=== PATIENT | female | born 1970 | race Caucasian/White ===

== ENCOUNTER 2024-04-06 00:54 | Day surgery (SDC) | payer MEDICARE, MEDICAID, SELFPAY ==
[2024-04-06 06:53] VITALS: BP 158/83; PULSE 120; RESP 20; TEMP 36.3; O2SAT 100; BMI 56.2
[2024-04-06] MEDS: LACTATED RINGERS 1,000 ML 150 ML IV CONT (07:08)
[2024-04-06 07:09] LABS: Glucose Point of Care 207 mg/dl (65-105)
--- NOTE | 2024-04-06 07:33 | WPDANESEPPF ---
Anes - Initial Pre Proc Eval Procedure: Operation Date: 04/06/24 08:00 Proposed Procedures p Screening Colonoscopy - Mihir Hui DO Date/Time: 04/06/24 07:33 Surgeon: Mihir Hui DO Pre Op Diagnosis: Screening for malignant neoplasm of colon Patient Data Age: 53 Gender: F Height: 1.63 m Weight: 148.5 kg Last Vital Signs Temp 97.4 F L 04/06/24 06:53 Pulse 120 H 04/06/24 06:53 Resp 20 04/06/24 06:53 BP 158/83 H 04/06/24 06:53 Pulse Ox 100 04/06/24 06:53 O2 Del Method Room Air 04/06/24 06:53 Allergies Allergy/AdvReac Type Severity Reaction Status Date / Time latex Allergy Difficulty Verified 04/06/24 06:52 Breathing levofloxacin [From Levaquin] AdvReac Mild Unknown Verified 04/06/24 06:52 metformin AdvReac Mild Unknown Verified 04/06/24 06:52 morphine AdvReac Mild Hives Verified 04/06/24 06:52 Penicillins AdvReac Mild Rash Verified 04/06/24 06:52 tioconazole AdvReac Mild burning Verified 04/06/24 06:52 [From Monistat 1 pain (tioconazole)] tardance AdvReac Mild yeast Uncoded 04/06/24 06:52 infection Home Medications Medication Instructions Recorded Confirmed Type aspirin 81 mg tablet,delayed 81 mg PO DAILY 02/22/24 03/22/24 History release (Adult Low Dose Aspirin) atorvastatin 10 mg tablet 10 mg PO DAILY #90 tabs 02/22/24 03/22/24 Rx cariprazine 1.5 mg capsule 1.5 mg PO DAILY 02/22/24 03/22/24 History (Vraylar) dextromethorphan IR 45 1 tablet PO BID 02/22/24 03/22/24 History mg-bupropion ER 105 mg biphasic tablet (Auvelity) duloxetine 30 mg capsule,delayed 30 mg PO DAILY 02/22/24 03/22/24 History release escitalopram oxalate 20 mg tablet 20 mg PO DAILY 02/22/24 03/22/24 History fexofenadine 180 mg tablet 180 mg PO DAILY 02/22/24 03/22/24 History (Alissa Allergy) lisinopril 2.5 mg tablet 2.5 mg PO DAILY #90 tabs 02/22/24 03/22/24 Rx metoprolol succinate 100 mg 100 mg PO DAILY 02/22/24 03/22/24 History tablet,extended release 24 hr metoprolol succinate 50 mg 50 mg PO DAILY 02/22/24 03/22/24 History tablet,extended release 24 hr pioglitazone 30 mg tablet 30 mg PO DAILY #90 tabs 02/22/24 03/22/24 Rx tirzepatide 15 mg/0.5 mL 15 mg (0.5 mL) subcut WEEKLY #6 mL 02/22/24 03/22/24 Rx subcutaneous pen injector (Mounjaro) Laboratory Tests 04/06/24 07:00 POC Capillary Glucose 207 H mg/dl (65-105) Patient hx anesthesia problems: none Family hx anesthesia problems: none Results Review: All pre-operative results and documents have been reviewed as part of the pre-operative evaluation. [facility] Past Medical History Medical History (Updated 02/22/24 @ 15:55 by Isabel Johnson APRN) Allergies Anxiety Diabetes Hyperlipidemia Hypertension Left hip pain MDD (major depressive disorder), recurrent episode, mild Obese GILBERTO (obstructive sleep apnea) Surgical History Surgical History (Updated 02/22/24 @ 13:54 by Charley Hoskins CMA) Hx of cholecystectomy Family History Family History (Updated 02/22/24 @ 13:53 by Charley Hoskins CMA) Father Brain cancer Mother Alcoholism Hypertension Heart disease Sibling Alcoholism Diabetes mellitus Heart disease Grandparent Diabetes mellitus Hypertension Heart disease Social History Social History (Updated 02/22/24 @ 13:51 by Charley Hoskins CMA) Smoking status: Never smoker Alcohol intake: never Substance use: never Do You Feel Safe in your Home?: Yes Lack of Transportation: No Lack of Food: Never True Current Housing: I Have Housing Concerned About Future Housing: No Difficulty Paying Gas/Electric Bills: No Difficulty Paying for Meds: No Currently Unemployed: No Education: Don't Know Difficulty w/ Childcare or Family Care: No Living arrangements: with roommate(s) Occupation/Education: other Spiritual care concerns: No Agree to blood products: Yes Anes - Eval Final PreProcedure Day of Proc
--- NOTE | 2024-04-06 07:52 | PM.IMHP ---
H&P: HPI History of Present Illness Date/Time: 04/06/24 07:52 Chief Complaint: Screening for colorectal cancer Narrative: this is a 53-year-old woman who presents for colonoscopy. She has never had a colonoscopy before. She denies any hematochezia or melena. She denies any family history of colon cancer. Review of Systems Review of Systems: All systems reviewed & are unremarkable except as noted in HPI and below Constitutional: Constitutional: Denies chills, Denies fever(s), Denies headache(s) and Denies weight loss Eyes: Eyes: Denies change in vision ENT: Denies dizziness, Denies headache(s), Denies neck mass and Denies throat swelling Cardiovascular: Cardiovascular: Denies chest pain, Denies lightheadedness and Denies dyspnea Respiratory: Respiratory: Denies cough, Denies dyspnea and Denies wheezing Gastrointestinal: Gastrointestinal: Denies abdominal pain, Denies change in bowel habits, Denies nausea and Denies vomiting Genitourinary: Genitourinary: Denies hematuria and Denies dysuria Musculoskeletal: Musculoskeletal: Reports as per HPI Integumentary/Breasts: Skin/Breast: Reports as per HPI Neurologic: Denies dizziness and Denies headache(s) Allergic/Immunologic: Allergic/Immunologic: Denies throat swelling and Denies wheezing [facility] Past Medical History Medical History (Updated 04/06/24 @ 07:52 by Mihir Hui DO) Allergies Anxiety Diabetes Hyperlipidemia Hypertension Left hip pain MDD (major depressive disorder), recurrent episode, mild Obese GILBERTO (obstructive sleep apnea) Surgical History Surgical History (Updated 02/22/24 @ 13:54 by Charley Hoskins CMA) Hx of cholecystectomy Family History Family History (Updated 02/22/24 @ 13:53 by Charley Hoskins CMA) Father Brain cancer Mother Alcoholism Hypertension Heart disease Sibling Alcoholism Diabetes mellitus Heart disease Grandparent Diabetes mellitus Hypertension Heart disease Social History Social History (Updated 02/22/24 @ 13:51 by Charley Hoskins CMA) Smoking status: Never smoker Alcohol intake: never Substance use: never Do You Feel Safe in your Home?: Yes Lack of Transportation: No Lack of Food: Never True Current Housing: I Have Housing Concerned About Future Housing: No Difficulty Paying Gas/Electric Bills: No Difficulty Paying for Meds: No Currently Unemployed: No Education: Don't Know Difficulty w/ Childcare or Family Care: No Living arrangements: with roommate(s) Occupation/Education: other Spiritual care concerns: No Agree to blood products: Yes Meds Home Medications and Allergies Home Medications Medication Instructions Recorded Confirmed Type aspirin 81 mg tablet,delayed 81 mg PO DAILY 02/22/24 03/22/24 History release (Adult Low Dose Aspirin) atorvastatin 10 mg tablet 10 mg PO DAILY #90 tabs 02/22/24 03/22/24 Rx cariprazine 1.5 mg capsule 1.5 mg PO DAILY 02/22/24 03/22/24 History (Vraylar) dextromethorphan IR 45 1 tablet PO BID 02/22/24 03/22/24 History mg-bupropion ER 105 mg biphasic tablet (Auvelity) duloxetine 30 mg capsule,delayed 30 mg PO DAILY 02/22/24 03/22/24 History release escitalopram oxalate 20 mg tablet 20 mg PO DAILY 02/22/24 03/22/24 History fexofenadine 180 mg tablet 180 mg PO DAILY 02/22/24 03/22/24 History (Alissa Allergy) lisinopril 2.5 mg tablet 2.5 mg PO DAILY #90 tabs 02/22/24 03/22/24 Rx metoprolol succinate 100 mg 100 mg PO DAILY 02/22/24 03/22/24 History tablet,extended release 24 hr metoprolol succinate 50 mg 50 mg PO DAILY 02/22/24 03/22/24 History tablet,extended release 24 hr pioglitazone 30 mg tablet 30 mg PO DAILY #90 tabs 02/22/24 03/22/24 Rx tirzepatide 15 mg/0.5 mL 15 mg (0.5 mL) subcut WEEKLY #6 mL 02/22/24 03/22/24 Rx subcutaneous pen injector (Josh) Allergies Allergy/AdvReac Type Severity Reaction Status Date / Time latex Allergy Difficulty Verified 04/06
[2024-04-06 08:23] VITALS: BP 98/59; PULSE 102; RESP 24; O2SAT 96
[2024-04-06 08:33] VITALS: BP 141/79; PULSE 102; RESP 18; O2SAT 97
== END 2024-04-06 08:42 | disposition home or self-care (01) ==
PROVIDERS: PCP Nurse Practitioner Family; Visit Provider Surgery
PROC: 0DJD8ZZ Inspection of Lower Intestinal Tract, Via Natural or Artificial Opening Endoscopic (ICD-10-PCS; CPT 45378; principal; 2024-04-06 08:00)
DX: Z12.11 Encounter for screening for malignant neoplasm of colon (principal); I10 Essential (primary) hypertension; E78.5 Hyperlipidemia, unspecified; E11.9 Type 2 diabetes mellitus without complications; F41.9 Anxiety disorder, unspecified; F33.0 Major depressive disorder, recurrent, mild; G47.33 Obstructive sleep apnea (adult) (pediatric); E66.01 Morbid (severe) obesity due to excess calories; Z68.43 Body mass index [BMI] 50.0-59.9, adult; Z79.82 Long term (current) use of aspirin; Z79.85 Long-term (current) use of injectable non-insulin antidiabetic drugs; Z90.49 Acquired absence of other specified parts of digestive tract; Z80.0 Family history of malignant neoplasm of digestive organs; Z80.8 Family history of malignant neoplasm of other organs or systems; Z82.49 Family history of ischemic heart disease and other diseases of the circulatory system
CPT/HCPCS: G0105; 82948; J7120

== ENCOUNTER 2025-04-06 10:48 | Outpatient (CLI) | payer MEDICARE, SELFPAY ==
--- OUTSIDE RECORDS SUMMARY | 2025-04-06 10:52 | XMS_ITS | Encounter Summary ---
Author Organization [facility] Health Address [address] [place] [address] Care Team Providers Care Battery Container Inspector Name Role Phone Majo Stovall MD Primary Care Provider Reason for Visit * Reason Onset Date Comments MEDICATION REFILL 03/26/2019 Encounter Details Date Type Department Care Team (Late st Contact Info) Description 03/26/2019 Refill [facility] [address] [place] [address] Majo Stovall MD [address] [facility] [place] [address] MEDICATION REFILL Social History Tobacco Use Types Packs/Day Years Used Date Smoking Tobacco: Never Smokeless Tobacco: Never Alcohol Use Standard Drinks/Week Comments Yes 0 (1 standard drink = 0.6 oz pur e alcohol) Comments Unknown Sex and Gender Information Value Date Recorded Sex Assigned at Not on file Legal Sex Female 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
--- OUTSIDE RECORDS SUMMARY | 2025-04-06 10:53 | XMS_ITS | CONTINUITY OF CARE DOCUMENT ---
Author Name charity n[facility] Address Unknown Organization [facility] Address [address] [place] [address] Phone [phone] Care Team Providers Care Director [employer] Name Role Phone Danilo BLAKE, Iona Rose Unavailable Alex MIRZAP-BC, Isabel Downey Unavailable Alex MIRZAP-BC, Isabel Downey Unavailable PROBLEMS Condition Status Date Provider Notes Hypertension active Iona Carrasco MD Diabetes, Type 2 active Iona Carrasco MD Hyperlipidemia active Iona Carrasco MD Sinus tachycardia active Iona Verduzco Anxiety situational active Iona Carrasco MD Cardiovascular Condition Screening active S felecia Carrasco MD Sleep apnea active Iona Carrasco MD Cardiology examination active Iona cunningham MD ENCOUNTERS Date Type Provider Location Encounter Diag nosis - In-person encounter Office Visit Iona Carrasco MD [facility] Cardiology examination - In-person encounter Office Visit Iona Carrasco MD [facility] - In-person encounter Office Visit Iona Carrasco MD [facility] - In-person encounter Office Visit Iona Carrasco MD [facility] Sleep apnea - In-person encounter Office Visit Iona Carrasco MD [facility] - In-person encounter Office Visit Iona Carrasco MD [facility] HypertensionDiabetes, Type 2HyperlipidemiaSinus tachycardiaAnxiety situationalCardiovascular Condition Screening VITAL SIGNS Date Observation Value Provider Body Mass Index (Ratio) 25.54 kg/m2 Paresh Dubose pulse rate 83 /min Marie Gonzalezer s oxygen saturation, oximetry 97 % Marie Prieto blood pressure, diastolic 86 mm[Hg] Ti sukhdev Prieto blood pressure, systolic 129 mm[Hg] Tif corbin Prieto weight E&M 321 [lb_av] Marie Saunder s blood pressure, cuff size regular Ti sukhdev Prieto height E&M 94 [in_i] Marie Saunder s Body Mass Index (Ratio) 27.05 kg/m2 Alana Carrasco MD blood pressure, cuff size large Ke rri Gruenenfelder blood pressure, diastolic 70 mm[Hg] Ke rri Gruenenfelder blood pressure, systolic 114 mm[Hg] Meera ri Elenanenfelder oxygen saturation, oximetry 95 % Brianna Gruenenfelder respiratory rate E&M 12 /min Brianna G ruenenfelder pulse rate 89 /min Brianna Gruenenfe lder weight E&M 340 [lb_av] Brianna Gruenenfe lder height E&M 94 [in_i] Brianna Gruenenfe lder Body Mass Index (Ratio) 24.58 kg/m2 Alana Carrasco MD blood pressure, cuff size large Ke rri Gruenenfelder blood pressure, diastolic 80 mm[Hg] Ke rri Gruenenfelder blood pressure, systolic 122 mm[Hg] Ker ri Gruenenfelder oxygen saturation, oximetry 96 % Brianna Gruenenfelder respiratory rate E&M 16 /min Brianna G ruenenfelder pulse rate 97 /min Brianna Gruenenfe lder weight E&M 309 [lb_av] Brianna Gruenenfe lder height E&M 94 [in_i] Brianna Gruenenfe lder Body Mass Index (Ratio) 24.74 kg/m2 Alana Carrasco MD blood pressure, diastolic 90 mm[Hg] Ke rri Gruenenfelder blood pressure, systolic 140 mm[Hg] Ker ri Gruenenfelder blood pressure, cuff size large Ke rri Gruenenfelder oxygen saturation, oximetry 95 % Brianna Gruenenfelder respiratory rate E&M 16 /min Brianna G ruenenfelder pulse rate 86 /min Brianna Gruenenfe er weight E&M 311 [lb_av] Brianna Gruenenfe lder height E&M 94 [in_i] Brianna Gruenenfe lder Body Mass Index (Ratio) 24.43 kg/m2 Alana Carrasco MD blood pressure, diastolic 82 mm[Hg] Li nkLogic blood pressure, systolic 142 mm[Hg] Josi kLogic blood pressure, diastolic 82 mm[Hg] Sa ra Clark blood pressure, systolic 142 mm[Hg] Casie a Clark oxygen saturation, oximetry 96 % Dimple Clark respiratory rate E&M 18 /min Dimple Si ms pulse rate 93 /min Dimple Clark weight E&M 307 [lb_av] Dimple Clark height E&M 94 [in_i] Dimple Clark blood pressure, cuff size regular Sa ra Clark Body Mass Index (Ratio) 25.22 kg/m2 Alana Carrasco MD blood pressure, diastolic 85 mm[Hg] Li nkLogic blood pressure, systolic 157 mm[Hg] Josi kLogic blood pressure, diastolic 85 mm[Hg] Ca therine Horacio blood pressure, systolic 157 mm[Hg] Cat herine Landis oxygen saturation, oximetry 94 % Maria Luisa Landis respiratory rate E&M 14 /min Catheri ne Horacio pulse rate 116 /min Maria Luisa Landis weight E&M 317 [lb_av] Maria Luisa Landis height E&M 94 [in_i] Maria Luisa Landis blood pressure, cuff size regular Ca therine Landis ALLERGIES Allergy Name Onset Date Reaction Criticality Status LEVAQUIN High Criticality active JARDIANCE High Criticality active METFORMIN High Criticality active LATEX High Criticality active MORPHINE High Criticality active PENICILLIN High Criticality active HISTORY OF MEDICATION USE Medication Status Instructions Dates Provider Indications Com ments metoprolol succinate 50 mg tablet extended release 24 hr active TAKE ONE (1) TABLET BY MOUTH ONCE DAILY. TAKE ALONG WITH ONE 100MG TAB. Chely Adair metoprolol succinate 50 mg tablet extended release 24 hr completed TAKE 1 TABLET BY MOUTH ONCE DAILY. TAKE ALONG WITH ONE 100MG TAB. - Chely Adair METOPROLOL SUCC ER 50MG TAB active TAKE ONE TABLET BY MOUTH ONCE DAILY ALONG WITH 100MG TABLET FOR 150MG DAILY Iona Carrasco MD metoprolol succinate 100 mg tablet extended release 24 hr completed Take 1 1/2 tablet by mouth once a day - Catherine [facility] metoprolol succinate 100 mg tablet extended release 24 hr completed Take 1 1/2 tablet by mouth once a day need to take 150mg daily - Adela Dania Farxiga 10 mg tablet active TAKE 1 TABLET BY MOUTH EVERY DAY Maria Luisa Horacio duloxetine 30 mg capsule,delayed release(DR/EC) active TAKE 1 CAPSULE BY MOUTH EVERY DAY Maria Luisa Landis escitalopram oxalate 20 mg tablet active TAKE 1 TABLET BY MOUTH EVERY DAY Maria Luisa Horacio glipizide 10 mg tablet active TAKE 2 TABLETS BY MOUTH TWICE A DAY Maria Luisa Horacio montelukast 10 mg tablet active TAKE 1 TABLET BY MOUTH EVERY DAY Maria Luisa Landis lisinopril 2.5 mg tablet active TAKE 1 TABLET BY MOUTH EVERY DAY Maria Luisa Horacio metoprolol succinate 100 mg tablet extended release 24 hr completed Take 1 1/2 tablet by mouth once a day - Brianna Blackwell atorvastatin 10 mg tablet active TAKE 1 TABLET BY MOUTH EVERY DAY Maria Luisa Horacio aspirin 81 mg capsule active Maria Lusia Horacio vitamin D3-folic acid 2,500 unit- 1 mg tablet active Maria Luisa Horacio Vitamin C unspecified unspecified active Maria Luisa Horacio SOCIAL HISTORY Date Observation Value Provider smoking status Never smoker Iona cunningham MD number of grandchildren Iona Carrasco MD smoking status Never smoker Iona cunningham MD social history E&M S moking History: Agnes diaz has never smoked. Iona Carrasco MD social history reviewed E&M revi ewed - no changes required Iona Carrasco MD smoking status Never smoker Brianna reilly smoking status Never smoker Brianna reilly social history E&M S moking History: Agnes daiz has never smoked. Iona Carrasco MD social history reviewed E&M channing ewed - no changes required Iona Carrasco MD smoking status Never smoker Maria Luisa hernández INSURANCE PROVIDERS Payer name Policy type / Coverage type Naseem de la cruz ID [place] [employer] Medicare [id number] ADVANCE DIRECTIVES Name Date DISCUSSED - NO DECISION MADE TREATMENT PLAN Date Name Performer [id number],C,C heck A1c H er updated medication list for this problem includes: Farxiga 10 Mg Tablet (Dapagliflozin) ..... Take 1 tablet by mouth every day Glipizide 10 Mg Tablet (Glipizide) ..... Take 2 tablets by mouth twice a day Lisinopril 2.5 Mg Tablet (Lisinopril) ..... Take 1 tablet by mouth every day Iona Carrasco MD [id number],C, H er updated medication list for this problem includes: Metoprolol Succinate 100 Mg Tablet Extended Release 24 Hr (Metoprolol succinate) ..... Take 1 1/2 tablet by mouth once a day need to take 150mg daily Lisinopril 2.5 Mg Tablet (Lisinopril) ..... Take 1 tablet by mouth every day BP today: 122/80 P rior BP: 140/90 (10/09/2022) Iona Carrasco MD [id number],S,F ebruary 2022 B radha with beta karan. Continue with metoprolol XL 150mg daily. Iona Carrasco MD [id number],C, H er updated medication list for this problem includes: Atorvastatin 10 Mg Tablet (Atorvastatin) ..... Take 1 tablet by mouth every day Iona Carrasco MD [id number],C, h ad lisa w/u done with pcp and will get cpap on 10/14January 01, 2023 T he patient is using CPAP on a regular basis. The patient has been benefiting from therapy and should continue use. Iona Carrasco MD [id number],C, o n medrx Iona Carrasco MD [id number],S, H er updated medication list for this problem includes: Farxiga 10 Mg Tablet (Dapagliflozin) ..... Take 1 tablet by mouth every day Glipizide 10 Mg Tablet (Glipizide) ..... Take 2 tablets by mouth twice a day Lisinopril 2.5 Mg Tablet (Lisinopril) ..... Take 1 tablet by mouth every day Iona Carrasco MD [id number],C, B P today: 140/90 P rior BP: 142/82 (07/03/2022) Her updated medication list for this problem includes: Metoprolol Succinate 100 Mg Tablet Extended Release 24 Hr (Metoprolol succinate) ..... Take 1 tablet by mouth once a day Lisinopril 2.5 Mg Tablet (Lisinopril) ..... Take 1 tablet by mouth every day Iona Carrasco MD [id number],C, I ncreased Toprol XL to 50mg TID N 2021 s he tolerated and will cahgne to toprolxl 150mg Iona Carrasco MD [id number],C,h ad lisa w/u done with pcp and will get cpap on 10/14 Iona Carrasco MD [id number],C, H er updated medication list for this problem includes: Metoprolol Succinate 100 Mg Tablet Extended Release 24 Hr (Metoprolol succinate) ..... Take 1/2 tablet by mouth every eight hours take 1 tablet by mouth every day Lisinopril 2.5 Mg Tablet (Lisinopril) ..... Take 1 tablet by mouth every day BP today: 142/82 P rior BP: 157/85 (02/27/2022) Iona Carrasco MD [id number],C, H er updated medication list for this problem includes: Farxiga 10 Mg Tablet (Dapagliflozin) ..... Take 1 tablet by mouth every day Glipizide 10 Mg Tablet (Glipizide) ..... Take 2 tablets by mouth twice a day Lisinopril 2.5 Mg Tablet (Lisinopril) ..... Take 1 tablet by mouth every day Iona Carrasco MD [id number],C, H er updated medication list for this problem includes: Atorvastatin 10 Mg Tablet (Atorvastatin) ..... Take 1 tablet by mouth every day Iona Carrasco MD [id number],C, c heck echo and tel emoniotr Normal LV fucntion brief SVT Iona Carrasco MD [id number],S,Increased Top rol XL to 50mg TID Iona Carrasco MD [id number],C,check echo an d tel emoniotr Iona Carrasco MD [id number],C, H er updated medication list for this problem includes: Farxiga 10 Mg Tablet (Dapagliflozin) ..... Take 1 tablet by mouth every day Glipizide 10 Mg Tablet (Glipizide) ..... Take 2 tablets by mouth twice a day Lisinopril 2.5 Mg Tablet (Lisinopril) ..... Take 1 tablet by mouth every day Iona Carrasco MD [id number],S,on medrx Alana Carrasco MD [id number],S,T SH was normal at 1.99 on 03/26/21 w ill get tele monitor a void caffeine s he has been drinking iced tea unsweetehned advicesd against intake of caffeine for now w ill increase toprol xl to 50mg bid a void montekulast use flonase for allergies Iona Carrasco MD [id number],S,advacnce topr olxl to 50mg bid Iona Carrasco MD Cardiology:Recommend check BP at home. I ncrease Lisinopril in future if needed. H er updated medication list for this problem includes: Metoprolol Succinate 50 Mg Tablet Extended Release 24 Hr (Metoprolol succinate) ..... Take one (1) tablet by mouth once daily. take along with one 100mg tab. Lisinopril 2.5 Mg Tablet (Lisinopril) ..... Take 1 tablet by mouth every day BP today: 129/86 P rior BP: 114/70 (02/23/2024) Iona Carrasco MD Cardiology: A 1c 6.5% C heck A1c H er updated medication list for this problem includes: Farxiga 10 Mg Tablet (Dapagliflozin) ..... Take 1 tablet by mouth every day Glipizide 10 Mg Tablet (Glipizide) ..... Take 2 tablets by mouth twice a day Lisinopril 2.5 Mg Tablet (Lisinopril) ..... Take 1 tablet by mouth every day March 09, 2025 A 1c 7.1 most recenty Iona Carrasco MD Cardiology: I mproved on toprol XL1 50mg. BP tolerates. Iona Carrasco MD Cardiology: h ad lisa w/u done with pcp and will get cpap on 10/14January 01, 2023 T he patient is using CPAP on a regular basis. The patient has been benefiting from therapy and should continue use. February 23, 2024 T he patient is using CPAP on a regular basis. The patient has been benefiting from therapy and should continue use. March 09, 2025 T he patient is using CPAP on a regular basis. The patient has been benefiting from therapy and should continue use. T his visit has been a part of the consistent, comprehensive, and ongoing management of the chronic medical condition(s) listed above for the patient. Iona Carrasco MD Cardiology: H er updated medication list for this problem includes: Atorvastatin 10 Mg Tablet (Atorvastatin) ..... Take 1 tablet by mouth every day Ioan Carrasco MD Cardiology: c heck echo and tele moniotr Normal LV fucntion brief SVT ECHO 1 . Technically difficult study, secondary to obesity and a large body habitus. Interpretation is based on available limited v iews. Normal left ventricular systolic function. Normal left ventricular size. Normal left ventricular wall thickness. There is E t o A wave reversal consistent with impaired LV relaxation. E/E': 6.0 Left ventricular ejection fraction is measured at 65 %. 2 . Normal right ventricular size. Normal right ventricular systolic function. 3 . No significant valvular abnormalities. 0 05/19/2022 at 10:51 AM Iona Carrasco MD Cardiology: o n medrx Iona Carrasco MD Cardiology:[facility] updated medication list for this problem includes: Farxiga 10 Mg Tablet (Dapagliflozin) ..... Take 1 tablet by mouth every day Glipizide 10 Mg Tablet (Glipizide) ..... Take 2 tablets by mouth twice a day Lisinopril 2.5 Mg Tablet (Lisinopril) ..... Take 1 tablet by mouth every day Iona Carrasco MD Cardiology:Improved on toprol XL 1 50mg. BP tolerates. Iona Carrasco MD Cardiology: h ad lisa w/u done with pcp and will get cpap on 10/14January 01, 2023 T he patient is using CPAP on a regular basis. The patient has been benefiting from therapy and should continue use. February 23, 2024 T he patient is using CPAP on a regular basis. The patient has been benefiting from therapy and should continue use. Iona Carrasco MD Cardiology:Check A1c H er updated medication list for this problem includes: Farxiga 10 Mg Tablet (Dapagliflozin) ..... Take 1 tablet by mouth every day Glipizide 10 Mg Tablet (Glipizide) ..... Take 2 tablets by mouth twice a day Lisinopril 2.5 Mg Tablet (Lisinopril) ..... Take 1 tablet by mouth every day Iona Carrasco MD Cardiology: H er updated medication list for this problem includes: Metoprolol Succinate 100 Mg Tablet Extended Release 24 Hr (Metoprolol succinate) ..... Take 1 1/2 tablet by mouth once a day need to take 150mg daily Lisinopril 2.5 Mg Tablet (Lisinopril) ..... Take 1 tablet by mouth every day BP today: 122/80 P rior BP: 140/90 (10/09/2022) Iona Carrasco MD Cardiology:January 01, 2023 B radha with beta karan. Continue with metoprolol XL 150mg daily. Iona Carrasco MD Cardiology: H er updated medication list for this problem includes: Atorvastatin 10 Mg Tablet (Atorvastatin) ..... Take 1 tablet by mouth every day Iona Carrasco MD Cardiology: h ad lisa w/u done with pcp and will get cpap on 10/14January 01, 2023 T he patient is using CPAP on a regular basis. The patient has been benefiting from therapy and should continue use. Iona Carrasco MD Cardiology: o n medrx Iona Carrasco MD Cardiology: H er updated medication list for this problem includes: Farxiga 10 Mg Tablet (Dapagliflozin) ..... Take 1 tablet by mouth every day Glipizide 10 Mg Tablet (Glipizide) ..... Take 2 tablets by mouth twice a day Lisinopril 2.5 Mg Tablet (Lisinopril) ..... Take 1 tablet by mouth every day Iona Carrasco MD Cardiology: B P today: 140/90 P rior BP: 142/82 (07/03/2022) Her updated medication list for this problem includes: Metoprolol Succinate 100 Mg Tablet Extended Release 24 Hr (Metoprolol succinate) ..... Take 1 tablet by mouth once a day Lisinopril 2.5 Mg Tablet (Lisinopril) ..... Take 1 tablet by mouth every day Iona Carrasco MD Cardiology: I ncreased Toprol XL to 50mg TID N ovember 2021 s he tolerated and will cahgne to toprolxl 150mg Iona Carrasco MD Cardiology:had lisa w /u done with pcp and will get cpap on 10/14 Iona Carrasco MD Cardiology: H er updated medication list for this problem includes: Metoprolol Succinate 100 Mg Tablet Extended Release 24 Hr (Metoprolol succinate) ..... Take 1/2 tablet by mouth every eight hours take 1 tablet by mouth every day Lisinopril 2.5 Mg Tablet (Lisinopril) ..... Take 1 tablet by mouth every day BP today: 142/82 P rior BP: 157/85 (02/27/2022) Iona Carrasco MD Cardiology: H er updated medication list for this problem includes: Farxiga 10 Mg Tablet (Dapagliflozin) ..... Take 1 tablet by mouth every day Glipizide 10 Mg Tablet (Glipizide) ..... Take 2 tablets by mouth twice a day Lisinopril 2.5 Mg Tablet (Lisinopril) ..... Take 1 tablet by mouth every day Iona Carrasco MD Cardiology: H er updated medication list for this problem includes: Atorvastatin 10 Mg Tablet (Atorvastatin) ..... Take 1 tablet by mouth every day Iona Carrasco MD Cardiology: c heck echo and tel emoniotr Normal LV fucntion brief SVT Iona Carrasco MD Cardiology:Increased Toprol XL t o 50mg TID Iona Carrasco MD Cardiology:check echo and tel em oniotr Iona Carrasco MD Cardiology: H er updated medication list for this problem includes: Farxiga 10 Mg Tablet (Dapagliflozin) ..... Take 1 tablet by mouth every day Glipizide 10 Mg Tablet (Glipizide) ..... Take 2 tablets by mouth twice a day Lisinopril 2.5 Mg Tablet (Lisinopril) ..... Take 1 tablet by mouth every day Iona Carrasco MD Cardiology:on medrx Iona kiran MD Cardiology:TSH was n ormal at 1.99 on 03/26/21 w ill get tele monitor a void caffeine s he has been drinking iced tea unsweetehned advicesd against intake of caffeine for now w ill increase toprol xl to 50mg bid a void montekulast use flonase for allergies Iona Carrasco MD Cardiology:advacnce toprolxl to 50mg bid Iona Carrasco MD Date Name Complete Echo Monitor - Telemetry (Mobile Cardiac) Monitor - Telemetry (Mobile Cardiac) Complete Echo Monitor - Telemetry (Mobile Cardiac) HISTORY OF PROCEDURES Procedure Date Procedure Name Provider Procedure Notes S tatus Complex e/m visit add on Iona Carrasco MD completed EKG Iona Carrasco MD compl eted EKG Iona Carrasco MD compl eted EKG Iona Carrasco MD compl eted EKG Iona Carrasco MD compl eted EKG Iona Carrasco MD compl eted EKG Iona Carrasco MD compl eted
--- OUTSIDE RECORDS SUMMARY | 2025-04-06 10:53 | XMS_ITS | Clinical Summary ---
Author Organization [facility] Address [address] [place] [address] Care Team Providers Care Supervisor [employer] Name Role Phone Majo Stovall MD Primary Care Provider [phone] Source Comments [facility],non-owned Affiliates and Associated Physician Practices is amultiple site organization consisting of ambulatory clinics and hospital sitesin [place], [place], [place] and [place]. This disclosure is being madepursuant to the Care Everywhere program and may not contain all information available regarding this patient. Last updated 18.[facility] Allergies Active Allergy Reactions Criticality Noted Date Comments Empagliflozin Other 10/28/2018 Yeast infections Latex Rash Medium 06/15/2018 Levofloxacin Nausea and/or Vomiting 12/03/2010 Metformin GI Discomfort 06/15/2018 Hydrocortisone Other 10/28/2018 Monistat cream and insertion causes burning Morphine Rash Medium 06/15/2018 Penicillins Anaphylaxis High 06/15/2018 Medications * This document contains information received from the source organization and may not represent a complete record from that organization. * Be aware that medications may not be up to date on this document. Alwaysverify current medications with the patient. Folic Acid 800 MCG Active Cholecalcifero l (VITAMIN D3) 3000 UNITS Active Fexofenadine HCl (MIGUELITO PO) Active multivitamin daily tablet Take 1 tablet by mouth daily with food Active TURMERIC PO Active Glucose Blood (BLOOD GLUCOSE TEST STRIPS) STRP Use 1 strip 2 times daily,before breakfast and supper 100 strip 5 8 Active glipiZIDE (GLUCOTROL) 10 MG tablet TAKE 2 TABLETS BY MOUTH TWICE DAILY 60 tablet 9 Active metoprolol succinate XL 24hr (TOPROL XL) 50 MG tablet Take 1 tablet by mouth once daily 90 tablet 1 9 Active buPROPion XL 24hr (WELLBUTRIN-XL ) 300 MG tablet Take 1 tablet by mouth once daily 90 tablet 1 9 Active amLODIPine (NORVASC) 5 MG tablet Take 1 tablet by mouth once daily 90 tablet 1 9 Active buPROPion XL 24hr (WELLBUTRIN-XL ) 150 MG tablet Take one tab po in evening 90 tablet 1 9 Active atorvastatin (LIPITOR) 10 MG tablet Take 1 tablet by mouth at bedtime 90 tablet 1 9 Active glipiZIDE (GLUCOTROL) 10 MG tablet Take 2 tablets by mouth 2 times daily 180 tablet 1 9 Active escitalopram (LEXAPRO) 10 MG tablet Take 1 tablet by mouth once daily 90 tablet 9 Active TRULICITY 1.5 MG/0.5ML injection INJECT 1.5MG SUBQUTANEOUSLY EVERY 7 DAYS 2 mL 9 Active Active Problems Problem Noted Date Diagnosed Date Essential hypertension 03/01/2019 Tension headache 10/28/2018 Overview (10/28/2018): Would consider trial of pamelor Lactose intolerance in adult 06/15/2018 Folate deficiency 02/23/2017 Overview (07/18/2018): Overview: Folate 1 mg daily; 02/12 borderline level Pain in joint, shoulder region 08/25/2016 Overview (10/28/2018): Overview: Seen by PT; Félix Vázquez Presented with chest pain --2 ER visits Overview: CRP and ESR increased at 1.67; RA negative , MAGGIE negative Will check CCP; refer rheum About 50% better with advil 600 tid Irritable bowel syndrome with diarrhea 6 Overview (10/28/2018): Overview: Diarrhea for years; worse with spicy and fatty food Eats a lot of dairy--08/14--suggested reduction dairy Labs normal; does not want to reduce dairy--recommended trial of lactase Hypercholesteremia 04/24/2015 Palpitations 12/12/2014 Overview (10/28/2018): Overview: Has seen cardiology--most likely stress related Trial of toprol XR 50 mg Snores 12/12/2014 Overview (10/28/2018): Overview: Refer to [facility] again 12/13 Insomnia 09/29/2013 Overview (10/28/2018): Overview: Given trazodone; did not take initially; 03/14 working Anxiety state 09/15/2013 Depression 09/15/2013 Overview (10/28/2018): Overview: Has been on multiple meds in past--zoloft, paxil, prozac--initially work and then stop; seroquel ; hx of suicidal ideation Seeing therapist Michelle Dumont. Refer psychiatrist Candice for muscle relaxant and anti anxiety for now 09/10 Feels better with sleep--tramadol--09/29 Will try wellbutrin XL 07/13 Diabetes mellitus 01/30/2013 Overview (03/02/2019): Overview: Hgb A1C 7.2 03/11 Hgb A1C 6.1% 06/10; 09/10 6.3% (drinking more soda) HbA1C 09/11 now 7.5% ; start metformin XR 500 mg Does not tolerate metformin--start glipizide 10 ; up to 10 bid if BS over 150 fasting Add byetta if BS 's not down--follow up in 06/12 Hates injections Given script for glucometer HbA1C 6.8% 07/13 glipizide 10 mg q AM 12/14 HbA1C 6.9% 08/14 HbA1C 8.3%--dietary indiscretion--offered liraglutide 02/12 HbA1C 9.3%; emailed pt since unable to reach--see documentation 10/16 on dulaglutide, glipizide,40 mg; increase dulaglutide to 1.5 from 0.75; HbA1C 8.3% 03/17 HbA1C 7.5% ; yeast infections on SGLT2 inhibitor; diarrhea with metformin, refuses insulin. Could consider actos 15 mg. Would try to get her to quit soda first. Diastolic dysfunction 01/30/2013 Overview (07/18/2018): Overview: Seen by cardiology; no symptoms ; will be observed; ECHO in one yr 09/11 01/14 repeat ECHO consistent with Stage 1 dyastolic dysfunction Vitamin D deficiency 01/30/2013 Overview (10/28/2018): Overview: Vit D 12 09/10 45 Morbid obesity 01/24/2013 Morbid obesity with BMI of 50.0-59.9, adult 12/31 Overview (10/28/2018): Overview: Lost 40 lb from 01/11 to 09/10. Discussed gastric bypass surgery 09/11 Pt wants to wait until can lose more weight on own--recommended checking into different surgeries and ?coverage by [facility] Discussed bypass 12/13--wants to try again to lose weight Allergic rhinitis 12/03/2010 Immunizations Immunization Administration Dates Next Due INFLUENZA VACCINE 09/24/2014 INFLUENZA VACCINE, QUADR. (A FLURIA, FLUZONE QUADRIVALENT; 6MO+) (IIV4) 10/28/2018 TDAP (7yrs+) 03/09/2017 Family History Medical History Relation Name Comments Brain Tumor Father CAD (Coronary Artery Disease) Maternal Grandmother Diabetes - Type 2 Maternal Grandmother Hypertension Maternal Grandmother CAD (Coronary Artery Disease) Mother Diabetes - Type 2 Mother CAD (Coronary Artery Disease) Paternal Grandfather CAD (Coronary Artery Disease) Paternal Grandmother Hypertension Paternal Grandmother Relation Name Status Comments Father Maternal Grandfather Maternal Grandmother Mother Alive Paternal Grandfather Paternal Grandmother Alive Social History Tobacco Use Types Packs/Day Years Used Date Smoking Tobacco: Never Smokeless Tobacco: Never Alcohol Use Standard Drinks/Week Comments Yes 0 (1 standard drink = 0.6 oz pur e alcohol) Comments Unknown Sex and Gender Information Value Date Recorded Sex Assigned at Not on file Legal Sex Female 2:39 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 Gender Identity Female 06/20/2019 8:35 AM CDT Sexual Orientation Not on file Last Filed Vital Signs Vital Sign Reading Time Taken Comments Blood Pressure 146/79 06/20/2019 8:48 AM CDT Pulse 106 06/20/2019 8:48 AM CDT Temperature 36.6 C (97.9 F) 06/20/2019 8:48 AM CDT Respiratory Rate 22 03/01/2019 1:21 PM CDT Oxygen Saturation 98% 06/20/2019 8:48 AM CDT Inhaled Oxygen Concentration - - Weight 157.9 kg (348 lb) 06/20/2019 8:48 AM CDT Height 162.6 cm (5' 4 ) 06/20/2019 8:48 AM CDT Body Mass Index 59.73 06/20/2019 8:48 AM CDT Plan of Treatment Health Maintenance Due Date Last Done Comments COLOGUARD (AGES 45-75) - COLON CA SCREENING 1969 COLON MONITORING 1969 COLONOSCOPY - COLON CA SCREENING 1969 CT COLONOGRAPHY - COLON CA SCREENING 1969 Colorectal Cancer Screening 1969 FIT - COLON CA SCREENING 1969 FLEX SIG - COLON CA SCREENING 1969 HIV SCREENING 1984 HEPATITIS C SCREENING 09/28/1987 HEPATITIS B VACCINE (1 of 3 - 19+ 3-dose series) 1988 MAMMOGRAM 03/03/2015 03/03/2013 DIABETES-HGB A1C 05/31/2019 03/01/2019, , 02/22/2017, Additional history exists PNEUMOCOCCAL VACCINE 50+ (1 of 1 - PCV) 2019 ZOSTER VACCINE (1 of 2) 2019 DIABETES-FOOT EXAM WITH MONOFILAMENT 10/28/2019 10/28/2018 DIABETES-SERUM CREATININE 10/28/20192017, 02/22/2017, 08/06/2016, Additional history exists COVID-19 VACCINE (1 - season) 2024 DEPRESSION SCREENING 11/29/2024 DIABETES - URINE PROTEIN SCREENING 11/29/2024 03/01/2019, 10/28/2018 INFLUENZA VACCINE (Season Ended) 2025 10/28/2018, 09/24/2014 DTAP/TDAP/TD VACCINES (2 - Td or Tdap) 03/09/2027 03/09/2017 HIB VACCINE Aged Out No longer eligi ble based on patient's age to complete this topic HPV VACCINE Aged Out No longer eligi ble based on patient's age to complete this topic MENINGOCOCCAL (Group B) VACCINE SHARED DECISION-MAKING Aged Out No longer eligible based on patient's age to complete this topic MENINGOCOCCAL GROUPS A/C/Y/W VACCINE Aged Out No longer eligible based on patient's age to complete this topic Procedures Procedure Name Priority Date/Time Associated Diagnosis Comments MICROALBUMIN URINE RANDOM Routine 03/01/2019 2:03 PM CDT Type 2 diabetes mellitus with hyperglycemia, without long-term current use of insulin HEMOGLOBIN A1C Routine 03/01/2019 2:03 PM CDT Type 2 diabetes mellitus with hyperglycemia, without long-term current use of insulin COMPREHENSIVE METABOLIC PANEL Routine 10/28/2018 1:00 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 Uncontrolled type 2 diabetes mellitus with hyperglycemia MAMMO BILAT SCREENING Routine 03/03/2013 7:42 AM CDT from Last 3 Months or Most Recently Relevant to Health Maintenance Results * MICROALBUMIN URINE RANDOM (03/01/2019 2:03 PM CDT) Microalbumin Urine 0.4 mg/dL [facility] Comment: Reference Range Not established MYRNA See Below [facility] Comment: The ADA defines abnormalities in albumin excretion as follows: Category Result (mcg/mg creatinine) Normal <30 Microalbuminuria 30-299 Clinical albuminuria > OR = 300 The ADA recommends that at least two of three specimens collected within a 3-6 month period be abnormal before considering a patient to be within a diagnostic category. Test Performed at: [facility] [id number] [place] [address] KALI ZAMORANO DO,MPH Urine URINE SPECIMEN OBTAINED BY CLEAN CATCH PROCEDURE / Unknown 03/01/2019 2:03 PM CDT 03/02/2019 5:38 AM CDT us Majo Stovall MD LAB - URINE CHEMISTRY ORDERAB LES Final Result [facility] [id number] [place] [address] * (ABNORMAL) HEMOGLOBIN A1C (03/01/2019 2:03 PM CDT) Hemoglobin A1c 7.5(H) <5.7 % of total Hgb [facility] Comment: For someone without known diabetes, a hemoglobin A1c value of 6.5% or greater indicates that they may have diabetes and this should be confirmed with a follow-up test. For someone with known diabetes, a value <7% indicates that their diabetes is well controlled and a value greater than or equal to 7% indicates suboptimal control. A1c targets should be individualized based on duration of diabetes, age, comorbid conditions, and other considerations. Currently, no consensus exists regarding use of hemoglobin A1c for diagnosis of diabetes for children. 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 BUN 12 7 - 25 mg/dL [facility] Creatinine 0.75 0.50 - 1.10 mg/dL [facility] eGFR by MDRD 94 > OR = 60 mL/min/1. 73m2 [facility] eGFR by MDRD 108 > OR = 60 mL/min/1. 73m2 [facility] BUN/Creatinine Ratio NOT APPLICABLE 6 - 22 (calc) [facility] Sodium 137 135 - 146 mmol/L [facility] Potassium 4.4 3.5 - 5.3 mmol/L [facility] Chloride 99 98 - 110 mmol/L [facility] CO2 23 20 - 32 mmol/L [facility] Calcium 9.4 8.6 - 10.2 mg/dL [facility] Protein Total 7.1 6.1 - 8.1 g/dL [facility] Albumin 4.2 3.6 - 5.1 g/dL [facility] Globulin Total 2.9 1.9 - 3.7 g/dL (calc) [facility] Albumin/Globuli n Ratio 1.4 1.0 - 2.5 (calc) [facility] Bilirubin Total 0.5 0.2 - 1.2 mg/dL [facility] Alkaline Phosphatase 105 33 - 115 U/L [facility] AST 11 10 - 35 U/L [facility] ALT 14 6 - 29 U/L [facility] Comment: Test Performed at: [facility] [id number] [place] [address] KALI ZAMORANO DO,MPH Blood BLOOD SPECIMEN / Unknown 10/28/2018 1:00 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 10/29/2018 6:29 AM KETTLE FRY COOK OPERATOR us Majo Stovall MD LAB - CHEMISTRY ORDERABLES Fi nal Result Performing Organization Address City/State/[facility] Co de Phone Number [facility] [address] [place] [address] * MAMMO BILAT SCREENING (03/03/2013 7:42 AM CDT) Anatomical Region Laterality Modality Breast Bilateral Other Impressions 03/09/2013 5:13 PM CDT IMPRESSION: No mammographic evidence of malignancy. BI-RADS Category 1: Negative examination. Return for mammograms in one year or sooner if clinically indicated. Management of a palpable abnormality should be based on clinical grounds. This report was electronically signed by TIFFANY SHARMA M.D. on 03/09/2013 5:13 PM . Narrative 03/09/2013 5:13 PM CDT Bilateral screening mammogram Date: 03/03/2013 12:00 AM Comparison: 09/20/2009 History: Screening mammogram. Findings: The breasts were imaged in the cranial caudal and medial lateral oblique views using full field digital mammography. No suspicious new dominant mass, clustered microcalcification, or architectural distortion is seen. Breast parenchymal density: Scattered fibroglandular. This examination was subjected to CAD analysis. Procedure Note Julieth Sharma MD - 02/27/2018 Bilateral screening mammogram Date: 03/03/2013 12:00 AM Comparison: 09/20/2009 History: Screening mammogram. Findings: The breasts were imaged in the cranial caudal and medial lateral obliqueviews using full field digital mammography. No suspicious new dominantmass, clustered microcalcification, or architectural distortion is seen. Breast parenchymal density: Scattered fibroglandular. This examination was subjected to CAD analysis. IMPRESSION IMPRESSION: No mammographic evidence of malignancy. BI-RADS Category 1: Negative examination. Return for mammograms in one year or sooner if clinically indicated. Management of a palpable abnormality should be based on clinicalgrounds. This report was electronically signed by TIFFANY SHARMA M.D. on03/09/2013 5:13 PM . us Majo Stovall MD MAMMO ORDERABLES Final Result from Last 3 Months or Most Recently Relevant to Health Maintenance Insurance [employer] [address] [employer] Care Teams Supervisor [employer] Relationship Specialty Start Date End Date Majo Stovall MD [id number] [address] PCP - General 05/27/18
--- OUTSIDE RECORDS SUMMARY | 2025-04-06 10:53 | XMS_ITS | Clinical Summary ---
Author Organization [facility] [place] [address] Address [address] [place] [address] Care Team Providers Care Outreach Worker Name Role Phone Melisa Calderon NP Primary Care Provider [phone] Allergies Active Allergy Reactions Criticality Noted Date Comments Hydrocortisone Other (See comments) Low 10/28/2018 Monistat cream and insertion causes burning Empagliflozin Muscle pain Medium 09/22/2019 Latex Anaphylaxis High 09/22/2019 Levofloxacin Nausea only Low 09/22/2019 Metformin Nausea & Vomiting Low 09/22/2019 Morphine Hives Medium 09/22/2019 Penicillins Anaphylaxis High 09/22/2019 Medications cholecalciferol (VITAMIN D-3) 5,000 unit capsule Take 3,000 Units by mouth daily Active fexofenadine (MIGUELITO) 180 mg tablet Take 180 mg by mouth daily Active folic acid (FOLVITE) 1 mg tablet Take 800 mcg by mouth daily Active lidocaine 4 % gel Apply topically Active buPROPion XL (WELLBUTRIN XL) 300 mg 24 hr tablet Take 1 tablet (300 mg total) by mouth daily 90 tablet 1 07/19/20 20 Active amLODIPine (NORVASC) 10 mg tabletIndications: Type 2 diabetes mellitus with other specified complication, without long-term current use of insulin (HCC),Hypertension associated with diabetes (HCC),Type 2 diabetes mellitus with hyperlipidemia (HCC),Obesity, diabetes, and hypertension syndrome (HCC) Take 0.5 tablets (5 mg total) by mouth daily 90 tablet 1 07/19/20 20 Active metoprolol XL (TOPROL-XL) 50 mg extended release tabletIndications: Type 2 diabetes mellitus with other specified complication, without long-term current use of insulin (HCC),Hypertension associated with diabetes (HCC),Type 2 diabetes mellitus with hyperlipidemia (HCC),Obesity, diabetes, and hypertension syndrome (HCC) Take 1 tablet (50 mg total) by mouth daily 90 tablet 1 07/19/20 20 Active fluconazole (DIFLUCAN) 150 mg tabletIndications: Yeast infection Take 1 tablet (150 mg total) by mouth as directed Take one tab now. Repeat in 7 days if symptoms persist. 2 tablet 07/29/20 Active Additional Information Patient not taking.Reported on 11/01/2020 buPROPion XL (WELLBUTRIN XL) 150 mg 24 hr tabletIndications: Mild episode of recurrent major depressive disorder,Anxiety,I nsomnia, unspecified type TAKE ONE TABLET BY MOUTH EVERY MORNING 90 tablet 09/24/20 20 Active traZODone (DESYREL) 50 mg tablet Take 50 mg by mouth nightly as needed for sleep Active glipiZIDE (GLUCOTROL) 10 mg tabletIndications: Type 2 diabetes mellitus with other specified complication, without long-term current use of insulin (HCC),Hypertension associated with diabetes (HCC),Type 2 diabetes mellitus with hyperlipidemia (HCC),Obesity, diabetes, and hypertension syndrome (HCC) Take 2 tablets (20 mg total) by mouth 2 (two) times a day before breakfast and lunch 360 tablet 11/01/20 20 Active atorvastatin (LIPITOR) 10 mg tabletIndications: Type 2 diabetes mellitus with other specified complication, without long-term current use of insulin (HCC),Hypertension associated with diabetes (HCC),Type 2 diabetes mellitus with hyperlipidemia (HCC),Obesity, diabetes, and hypertension syndrome (HCC) Take 1 tablet (10 mg total) by mouth daily 90 tablet 3 11/01/20 20 Active escitalopram (LEXAPRO) 10 mg tabletIndications: Mild episode of recurrent major depressive disorder,Anxiety,I nsomnia, unspecified type Take 1 tablet (10 mg total) by mouth daily 90 tablet 1 11/01/20 20 Active lisinopriL (PRINIVIL,ZESTRIL) 2.5 mg tablet Take 2.5 mg by mouth daily Active dulaglutide (TRULICITY) 1.5 mg/0.5 mL pen injectorIndication s:Type 2 diabetes mellitus with other specified complication, without long-term current use of insulin (HCC),Type 2 diabetes mellitus with hyperlipidemia (HCC),Hypertension associated with diabetes (HCC),Obesity, diabetes, and hypertension syndrome (HCC) Inject 0.5 mL (1.5 mg total) under the skin every 7 days 8 mL 02/08/20 21 Active Active Problems Problem Noted Date Diagnosed Date Callus 11/01/2020 Assessment & Plan (11/01/2020 11:20 AM CONCIERGE MANAGER): Referral to podiatry. Hip pain, left 11/01/2020 Assessment & Plan (11/01/2020 11:06 AM CONCIERGE MANAGER): Take NSAIDs as needed. May use ice & heat to affected area. Maintain adequate rest with stretching/exercising. The patient was advised to call the office if symptoms worsen or do not improve. The patient verbalized an understanding of all instructions & plan. Painful veins 11/01/2020 Assessment & Plan (11/01/2020 11:21 AM CONCIERGE MANAGER): Imagining ordered. Non compliance w medication regimen 06/04/2020 Assessment & Plan (06/04/2020 2:48 PM CDT): Patient ran out of medications over three weeks ago for diabetes, just made appointment for today, blood sugars consistently running over 300. BMI 50.0-59.9, adult 06/04/2020 Assessment & Plan (11/01/2020 9:54 AM CONCIERGE MANAGER): BMI Follow-up includes: education provided. Assessment & Plan (06/04/2020 2:53 PM CDT): BMI Follow-up includes: education provided. Diabetes mellitus 09/22/2019 Assessment & Plan (10/31/2020 8:30 AM CONCIERGE MANAGER): Cont to take medication. Cont to monitor feet. Cont to go to eye doctor yearly. Cont to check blood sugars. Cont to eat healthy & exercise. Assessment & Plan (06/04/2020 2:49 PM CDT): Patient ran out of medications over three weeks ago for diabetes, just made appointment for today, blood sugars consistently running over 300. Will reorder her Trulicity and Glipizide, patient instructed to follow up in office in 3 months so we can order blood work. Assessment & Plan (01/19/2020 10:40 AM CONCIERGE MANAGER): Hasn't been on Trulicity. Couldn't afford it. Has money now. Did give sample. HgA1C 11.9 in office. Informed her she needs to be on insulin. She doesn't want insulin. She will take Trulicity & get the blood sugars under control. Explained to her if not improved will need to go on insulin & may need to see bait maker. Cont to take medication. Cont to monitor feet. Cont to go to eye doctor yearly. Cont to check blood sugars. Cont to eat healthy & exercise. The patient was advised to call the office if symptoms worsen or do not improve. The patient verbalized an understanding of all instructions & plan. Assessment & Plan (09/22/2019 9:27 AM CDT): Cont to take medication. Cont to monitor feet. Cont to go to eye doctor yearly. Cont to check blood sugars. Cont to eat healthy & exercise. The patient was advised to call the office if symptoms worsen or do not improve. The patient verbalized an understanding of all instructions & plan. Type 2 diabetes mellitus with hyperlipidemia Assessment & Plan (10/31/2020 8:31 AM CONCIERGE MANAGER): Advised to maintain a low-fat, low-cholesterol diet. Maintain a regular cardiovascular exercise program. Assessment & Plan (06/04/2020 2:50 PM CDT): 1. Stable, Continue current treatment. 2. Follow a low cholesterol , low fat diet 3. Exercise 4-7 days a week for at least 30 minutes per day. 4. Push the fluids 5. Follow up as directed. Last LDL was drawn on 09/22/2019 was 76 Assessment & Plan (01/18/2020 9:56 AM CONCIERGE MANAGER): Advised to maintain a low-fat, low-cholesterol diet. Maintain a regular cardiovascular exercise program. Assessment & Plan (09/22/2019 9:28 AM CDT): Advised to maintain a low-fat, low-cholesterol diet. Maintain a regular cardiovascular exercise program. The patient was advised to call the office if symptoms worsen or do not improve. The patient verbalized an understanding of all instructions & plan. Hypertension associated with diabetes 09/22/2019 Assessment & Plan (11/01/2020 11:25 AM CONCIERGE MANAGER): BP low. Hold Norvasc at this time & cont Metoprolol. Bring BP cuff in for apt. Follow up 1 month. Maintain a low-sodium diet (less than 2 grams per day). Maintain a regular cardiovascular exercise program. Assessment & Plan (06/04/2020 2:50 PM CDT): Stable, Continue current tx plan Assessment & Plan (01/18/2020 9:56 AM CONCIERGE MANAGER): Maintain a low-sodium diet (less than 2 grams per day). Maintain a regular cardiovascular exercise program. Assessment & Plan (09/22/2019 9:27 AM CDT): Maintain a low-sodium diet (less than 2 grams per day). Maintain a regular cardiovascular exercise program. The patient was advised to call the office if symptoms worsen or do not improve. The patient verbalized an understanding of all instructions & plan. Obesity, diabetes, and hypertension syndrome Assessment & Plan (10/31/2020 8:32 AM CONCIERGE MANAGER): Cont medication. Assessment & Plan (06/04/2020 2:50 PM CDT): BMI Follow-up includes: education provided. Assessment & Plan (01/18/2020 9:56 AM CONCIERGE MANAGER): Cont medication. Assessment & Plan (09/22/2019 9:28 AM CDT): Cont medication. Mild episode of recurrent major depressive disor [place] 09/22/2019 Assessment & Plan (11/01/2020 11:19 AM CONCIERGE MANAGER): D/w pt eating healthy, exercising, relaxation, counsling and medicaiton. List of therapist/psychiatrist given to pt. D/w her seeing a psychiatrist. The risks, benefits and side effects of treatment were discussed with the patient. SIGECAPS/anxiety positive; No SI,M,P; NO PMHx of mary If has any sucidual thoughts to go to ER immediately. The patient was advised to call the office if symptoms worsen or do not improve. The patient verbalized an understanding of all instructions & plan. Assessment & Plan (06/04/2020 2:51 PM CDT): Stable, will continue current medication, follow up in office in 3 months; counseled patient to monitor for any symptoms of suicidal ideations they are to let family or friends know immediatly so they can seek help for them or to call office or 911, counseling concerning emergent signs/symptoms of disease process and when to present to ER, when to call office, med/treatment plan compliance, diet and exercise. PHQ Score=0 Assessment & Plan (01/18/2020 9:57 AM CONCIERGE MANAGER): Stable. Cont medication. Assessment & Plan (09/22/2019 9:29 AM CDT): Stable. Cont medication. Anxiety 09/22/2019 Assessment & Plan (11/01/2020 11:19 AM CONCIERGE MANAGER): D/w pt eating healthy, exercising, relaxation, counsling and medicaiton. List of therapist/psychiatrist given to pt. D/w her seeing a psychiatrist. The risks, benefits and side effects of treatment were discussed with the patient. SIGECAPS/anxiety positive; No SI,M,P; NO PMHx of mary If has any sucidual thoughts to go to ER immediately. The patient was advised to call the office if symptoms worsen or do not improve. The patient verbalized an understanding of all instructions & plan. Assessment & Plan (06/04/2020 2:51 PM CDT): Stable, will continue current medication, follow up in office in 3 months; counseled patient to monitor for any symptoms of suicidal ideations they are to let family or friends know immediatly so they can seek help for them or to call office or 911, counseling concerning emergent signs/symptoms of disease process and when to present to ER, when to call office, med/treatment plan compliance, diet and exercise. PHQ Score=0 Assessment & Plan (01/18/2020 9:57 AM CONCIERGE MANAGER): Stable. Cont medication. Assessment & Plan (09/22/2019 9:28 AM CDT): Stable. Cont medication. Seasonal allergies 09/22/2019 Assessment & Plan (10/31/2020 8:33 AM CONCIERGE MANAGER): Stable. Cont otc medication as needed. Assessment & Plan (06/04/2020 2:52 PM CDT): Take Miguelito one tablet daily. Use Flonase one spray to each nostril once daily. Do not open windows on house or car to avoid further exposure to allergens, Take other medications as directed. Follow up in office as needed. Assessment & Plan (01/18/2020 9:58 AM CONCIERGE MANAGER): Stable. Cont otc medication as needed. Assessment & Plan (09/22/2019 9:29 AM CDT): Stable. Cont medication. Insomnia 09/22/2019 Assessment & Plan (11/01/2020 10:23 AM CONCIERGE MANAGER): Stable. Cont medication as needed. Takes Trazodone as needed. Assessment & Plan (06/04/2020 2:51 PM CDT): Continue current medication, no caffiene after 6pm at night, no stimulant medications such as dietary supplements or diet pills, When ready for bed turn off all TV's, radio, music to allow time to reduce the stimulant. Assessment & Plan (01/18/2020 9:57 AM CONCIERGE MANAGER): Stable. Cont medication. Assessment & Plan (09/22/2019 9:29 AM CDT): Stable. Cont medication. Morbid obesity with BMI of 50.0-59.9, adult 08/30 Assessment & Plan (06/04/2020 2:35 PM CDT): BMI Follow-up includes: education provided. Resolved Problems Problem Noted Date Diagnosed Date Resolved Date Annual physical exam 10/20/2020 021 Assessment & Plan (10/31/2020 8:29 AM CONCIERGE MANAGER): Maintain healthy lifestyle with healthy diet & exercise. Yeast infection 09/22/2019 10/20/2020 Assessment & Plan (06/04/2020 2:51 PM CDT): Will order Diflucan take as directed Assessment & Plan (01/19/2020 10:24 AM CONCIERGE MANAGER): Not wanting to have an exam & have swab sent. Feels once on Trulicity she will not have yeast infection anymore. It usually goes away when on Trulicity. She said she would come back in 1 month if not better. Re-current yeast infections with elevated blood sugar. Exercise, eat healthy & take medication. Need to get blood sugars under control. Take probiotics. The patient was advised to call the office if symptoms worsen or do not improve. The patient verbalized an understanding of all instructions & plan. Assessment & Plan (09/22/2019 9:43 AM CDT): Gets yeast infections when elevated blood sugars. Script sent to pharmacy. The patient was advised to call the office if symptoms worsen or do not improve. The patient verbalized an understanding of all instructions & plan. Immunizations Immunization Administration Dates Next Due Influenza, Quadrivalent, Spl it, Preservative Free, Intramuscular 11/01/2020 Influenza, Unspecified 09/22/2019(Deferr ed: Patient Refused),08/08/2018(Deferred: Patient Refused) Surgical History Surgery Date Site/Laterality Comments CHOLECYSTECTOMY Medical History Medical History Date Comments Diabetes mellitus (HCC) Hypertension Hyperlipidemia Anxiety Depression Family History Medical History Relation Name Comments Cancer Father Heart disease Maternal Grandfather Heart disease Maternal Grandmother Heart disease Paternal Grandmother Relation Name Status Comments Father Maternal Grandfather Maternal Grandmother Mother Alive Paternal Grandfather Paternal Grandmother Social History Tobacco Use Types Packs/Day Years Used Date Smoking Tobacco: Never Smokeless Tobacco: Never Alcohol Use Standard Drinks/Week Comments Never 0 (1 standard drink = 0.6 oz pur e alcohol) AUDIT-C Answer Date Recorded Frequency of Alcohol Consumption Never 09/22/2019 Average Number of Drinks Not on file 019 Frequency of Binge Drinking Not on file 08/30 PHQ-2 Answer Date Recorded PHQ-2 Total Score (If total score is 3 or more points, staff should administer the PHQ-9) 4 11/01/2020 Personal Safety Answer Date Recorded Getting School Help Needed Not on file 02/12 Comments Unknown Sex and Gender Information Value Date Recorded Sex Assigned at Not on file Legal Sex Female 7:51 PM CONCIERGE MANAGER Gender Identity Female 11/29/2019 8:23 PM CONCIERGE MANAGER Sexual Orientation Lesbian 11/29/2019 8: 23 PM CONCIERGE MANAGER Obstetrics History Last Filed Vital Signs Vital Sign Reading Time Taken Comments Blood Pressure 98/72 11/01/2020 10:14 AM CONCIERGE MANAGER Pulse 92 11/01/2020 10:14 AM CONCIERGE MANAGER Temperature 36.2 C (97.1 F) 11/01/2020 10:14 AM CONCIERGE MANAGER Respiratory Rate - - Oxygen Saturation - - Inhaled Oxygen Concentration - - Weight 154.7 kg (341 lb) 11/01/2020 10:14 AM CONCIERGE MANAGER Height 162.6 cm (5' 4 ) 11/01/2020 10:14 AM CONCIERGE MANAGER Body Mass Index 58.53 11/01/2020 10:14 AM CONCIERGE MANAGER Plan of Treatment Not on file Care Teams Outreach Worker Relationship Specialty Start Date End Date Melisa Calderon NP [address] [place] [address] PCP - General Family Medicine 09/22/19
--- OUTSIDE RECORDS SUMMARY | 2025-04-06 10:53 | XMS_ITS | Referral Summary ---
Author Organization [facility] [place] [address] Address [address] [place] [address] Care Team Providers Care Smoking Tobacco Packing Machine Hand Name Role Phone Melisa Calderon NP Primary Care Provider [phone] Allergies Active Allergy Reactions Criticality Noted Date [...] 11/01/2020 Assessment & Plan (11/01/2020 11:20 AM STATE ARCHIVIST): Referral to podiatry. Hip pain, left 11/01/2020 Assessment & Plan (11/01/2020 11:06 AM STATE ARCHIVIST): Take NSAIDs as needed. May use ice & heat to affected area. Maintain adequate rest with stretching/exercising. The patient was advised to call the office if symptoms worsen or do not improve. The patient verbalized an understanding of all instructions & plan. Painful veins 11/01/2020 Assessment & Plan (11/01/2020 11:21 AM STATE ARCHIVIST): Imagining ordered. Non compliance w medication regimen 06/04/2020 Assessment & Plan (06/04/2020 2:48 PM CDT): Patient ran out of medications over three weeks ago for diabetes, just made appointment for today, blood sugars consistently running over 300. BMI 50.0-59.9, adult 06/04/2020 Assessment & Plan (11/01/2020 9:54 AM STATE ARCHIVIST): BMI Follow-up includes: education provided. Assessment & Plan (06/04/2020 2:53 PM CDT): BMI Follow-up includes: education provided. Diabetes mellitus 09/22/2019 Assessment & Plan (10/31/2020 8:30 AM STATE ARCHIVIST): Cont to take medication. Cont to monitor [...] work. Assessment & Plan (01/19/2020 10:40 AM STATE ARCHIVIST): Hasn't been on Trulicity. Couldn't afford it. Has money now. Did give sample. HgA1C 11.9 in office. Informed her she needs to be on insulin. She doesn't want insulin. She will take Trulicity & get the blood sugars under control. Explained to her if not improved will need to go on insulin & may need to see business management consultant. Cont to take medication. Cont to monitor [...] hyperlipidemia Assessment & Plan (10/31/2020 8:31 AM STATE ARCHIVIST): Advised to maintain a low-fat, low-cholesterol diet. [...] 76 Assessment & Plan (01/18/2020 9:56 AM STATE ARCHIVIST): Advised to maintain a low-fat, low-cholesterol diet. [...] 09/22/2019 Assessment & Plan (11/01/2020 11:25 AM STATE ARCHIVIST): BP low. Hold Norvasc at this time & cont Metoprolol. Bring BP cuff in for apt. Follow up 1 month. Maintain a low-sodium diet (less than 2 grams per day). Maintain a regular cardiovascular exercise program. Assessment & Plan (06/04/2020 2:50 PM CDT): Stable, Continue current tx plan Assessment & Plan (01/18/2020 9:56 AM STATE ARCHIVIST): Maintain a low-sodium diet (less than 2 [...] syndrome Assessment & Plan (10/31/2020 8:32 AM STATE ARCHIVIST): Cont medication. Assessment & Plan (06/04/2020 2:50 PM CDT): BMI Follow-up includes: education provided. Assessment & Plan (01/18/2020 9:56 AM STATE ARCHIVIST): Cont medication. Assessment & Plan (09/22/2019 9:28 AM CDT): Cont medication. Mild episode of recurrent major depressive disor [place] 09/22/2019 Assessment & Plan (11/01/2020 11:19 AM STATE ARCHIVIST): D/w pt eating healthy, exercising, relaxation, counsling [...] Score=0 Assessment & Plan (01/18/2020 9:57 AM STATE ARCHIVIST): Stable. Cont medication. Assessment & Plan (09/22/2019 9:29 AM CDT): Stable. Cont medication. Anxiety 09/22/2019 Assessment & Plan (11/01/2020 11:19 AM STATE ARCHIVIST): D/w pt eating healthy, exercising, relaxation, counsling [...] Score=0 Assessment & Plan (01/18/2020 9:57 AM STATE ARCHIVIST): Stable. Cont medication. Assessment & Plan (09/22/2019 9:28 AM CDT): Stable. Cont medication. Seasonal allergies 09/22/2019 Assessment & Plan (10/31/2020 8:33 AM STATE ARCHIVIST): Stable. Cont otc medication as needed. Assessment & Plan (06/04/2020 2:52 PM CDT): Take Miguelito one tablet daily. Use Flonase one spray to each nostril once daily. Do not open windows on house or car to avoid further exposure to allergens, Take other medications as directed. Follow up in office as needed. Assessment & Plan (01/18/2020 9:58 AM STATE ARCHIVIST): Stable. Cont otc medication as needed. Assessment & Plan (09/22/2019 9:29 AM CDT): Stable. Cont medication. Insomnia 09/22/2019 Assessment & Plan (11/01/2020 10:23 AM STATE ARCHIVIST): Stable. Cont medication as needed. Takes Trazodone as needed. Assessment & Plan (06/04/2020 2:51 PM CDT): Continue current medication, no caffiene after 6pm at night, no stimulant medications such as dietary supplements or diet pills, When ready for bed turn off all TV's, radio, music to allow time to reduce the stimulant. Assessment & Plan (01/18/2020 9:57 AM STATE ARCHIVIST): Stable. Cont medication. Assessment & Plan (09/22/2019 9:29 AM CDT): Stable. Cont medication. Morbid obesity with BMI of 50.0-59.9, adult 08/30 Assessment & Plan (06/04/2020 2:35 PM CDT): BMI Follow-up includes: education provided. Resolved Problems Problem Noted Date Diagnosed Date Resolved Date Annual physical exam 10/20/2020 021 Assessment & Plan (10/31/2020 8:29 AM STATE ARCHIVIST): Maintain healthy lifestyle with healthy diet & exercise. Yeast infection 09/22/2019 10/20/2020 Assessment & Plan (06/04/2020 2:51 PM CDT): Will order Diflucan take as directed Assessment & Plan (01/19/2020 10:24 AM STATE ARCHIVIST): Not wanting to have an exam & [...] Unspecified 09/22/2019(Deferr ed: Patient Refused),08/08/2018(Deferred: Patient Refused) Social History Tobacco Use Types Packs/Day Years [...] on file Legal Sex Female 7:51 PM STATE ARCHIVIST Gender Identity Female 11/29/2019 8:23 PM STATE ARCHIVIST Sexual Orientation Lesbian 11/29/2019 8: 23 PM STATE ARCHIVIST Last Filed Vital Signs Vital Sign Reading Time Taken Comments Blood Pressure 98/72 11/01/2020 10:14 AM STATE ARCHIVIST Pulse 92 11/01/2020 10:14 AM STATE ARCHIVIST Temperature 36.2 C (97.1 F) 11/01/2020 10:14 AM STATE ARCHIVIST Respiratory Rate - - Oxygen Saturation - - Inhaled Oxygen Concentration - - Weight 154.7 kg (341 lb) 11/01/2020 10:14 AM STATE ARCHIVIST Height 162.6 cm (5' 4 ) 11/01/2020 10:14 AM STATE ARCHIVIST Body Mass Index 58.53 11/01/2020 10:14 AM STATE ARCHIVIST Plan of Treatment Not on file Care Teams Smoking Tobacco Packing Machine Hand Relationship Specialty Start Date End Date Melisa Calderon NP [address] [place] [address] PCP - General Family Medicine 09/22/19
--- OUTSIDE RECORDS SUMMARY | 2025-04-06 10:53 | XMS_ITS | Encounter Summary ---
Author Organization [facility] Address [address] [place] [address] Care Team Providers Care Crack Off Person Name Role Phone Majo Stovall MD Primary Care Provider [phone] Reason for Visit * Reason Onset Date Comments MEDICATION REFILL 04/03/2019 Encounter Details Date Type Department Care Team (Late st Contact Info) Description 04/03/2019 Refill [facility] Internal Medicine [address] [place] [address] Nitin Hernadez MD [address] [facility] [address] [facility] INTERNAL MEDICINE [place], [place] [id number] MEDICATION REFILL Social History Tobacco Use Types Packs/Day Years Used Date Smoking Tobacco: Never Smokeless Tobacco: Never Alcohol Use Standard Drinks/Week Comments Yes 0 (1 standard drink = 0.6 oz pur e alcohol) Comments Unknown Sex and Gender Information Value Date Recorded Sex Assigned at Not on file Legal Sex Female 2:39 PM LABOR RELATIONS TEACHER Gender Identity Female 06/20/2019 8:35 AM CDT Sexual Orientation Not on file documented as of this encounter Plan of Treatment Not on file documented as of this encounter Visit Diagnoses Not on filedocumented in this encounter Care Teams Crack Off Person Relationship Specialty Start Date End Date Majo Stovall MD [address] [place] [address] PCP - General 05/27/18 documented as of this encounter
[2025-04-09 15:03] LABS: Immunoglobulin A 373 mg/dL (47-310); TTG IGA AB <1.0 U/mL
== END 2025-04-06 10:49 | disposition home or self-care (01) ==
LOC: ANHLAB 10:50
PROVIDERS: PCP Nurse Practitioner Family; Visit Provider Nurse Practitioner
DX: K52.9 Noninfective gastroenteritis and colitis, unspecified (principal)
CPT/HCPCS: 36415; 82784

== ENCOUNTER 2025-04-09 11:32 | Outpatient (CLI) | payer MEDICARE, SELFPAY ==
--- OUTSIDE RECORDS SUMMARY | 2025-04-09 11:40 | XMS_ITS | Encounter Summary ---
Author Organization [facility] Health Address [address] [facility] [place] [address] Care Team Providers Care Protection Consultant Name Role Phone Majo Stovall MD Primary Care Provider Reason for Visit * Reason Onset Date Comments MEDICATION REFILL 03/26/2019 Encounter Details Date Type Department Care Team (Late st Contact Info) Description 03/26/2019 Refill [facility] [address] [place] [address] Majo Stovall MD [address] OF [facility] [place] [address] MEDICATION REFILL Social History Tobacco Use Types Packs/Day Years Used Date Smoking Tobacco: Never Smokeless Tobacco: Never Alcohol Use Standard Drinks/Week Comments Yes 0 (1 standard drink = 0.6 oz pur e alcohol) Comments Unknown Sex and Gender Information Value Date Recorded Sex Assigned at Not on file 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
--- OUTSIDE RECORDS SUMMARY | 2025-04-09 11:41 | XMS_ITS | Encounter Summary ---
Author Organization [facility] Health Address [address] [place] [address] Care Team Providers Care Director Personal Name Role Phone Majo Stovall MD Primary Care Provider Reason for Visit * Reason Onset Date Comments MEDICATION REFILL 04/03/2019 Encounter Details Date Type Department Care Team (Late st Contact Info) Description 04/03/2019 Refill [facility] Internal Medicine [address] [place] [address] Nitin Hernadez MD [address] [facility] [address] OF [facility] INTERNAL MEDICINE [place], [place] [id number] MEDICATION REFILL Social History Tobacco Use Types Packs/Day Years Used Date Smoking Tobacco: Never Smokeless Tobacco: Never Alcohol Use Standard Drinks/Week Comments Yes 0 (1 standard drink = 0.6 oz pur e alcohol) Comments Unknown Sex and Gender Information Value Date Recorded Sex Assigned at Not on file Legal Sex Female 2:39 PM [employer] Gender Identity Female 06/20/2019 8:35 AM CDT Sexual Orientation Not on file documented as of this encounter Plan of Treatment Not on file documented as of this encounter Visit Diagnoses Not on filedocumented in this encounter Care Teams Director Personal Relationship Specialty Start Date End Date Majo Stovall MD [address] [place] [address] PCP - General 05/27/18 documented as of this encounter
--- OUTSIDE RECORDS SUMMARY | 2025-04-09 11:41 | XMS_ITS | Data Portability ---
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 Non-pharmacologic therapy options for periodic limb movement disorder include avoidance of aggravating drugs and substances, mental alerting activities, short daily hemodialysis for patients in renal failure, exercise, leg massage, stretching calf muscles, use of a weighted blanket and applied heat. Patient will cut down on caffeine intake. BUN, Creatinine, Vitamin E, Vitamin B12, RBC folate, Iron, TIBC, Ferritin, Magnesium, Hgb and Hct levels are within normal limits. We will hold off on dopaminergic therapy for now. PAP compliance downloaded and interpreted x 20 minutes. Data reviewed and explained to the patient. Average apnea/hypopnea index (AHI) is 2.5. Patient used PAP > 4 hours 88% of the time. PAP is set at 10-14 cmH2O. PAP will be reset at 10-13 cmH2O. Keep ramp at 4 cmH2O. Oxygen supplementation: none Patient is benefiting from PAP therapy. Encouraged patient to maintain PAP use more than 70% of the time. Statement of PAP use and benefits will be sent to the home care store. Educated the patient on problems and solutions associated with positive airway pressure (PAP) use. Difficulty tolerating pressure, mask leaks, intolerance of interface, nasal congestion, claustrophobic response, dry mouth, and unintentional mask removal during sleep were covered. Patient has some difficulty tolerating pressure. Patient is advised to practice wearing PAP daily while awake, lower pressure with or without sleeping on sides, activate PAP ramp feature, have blower checked to make sure pressure is set as prescribed and return to sleep center for consideration of auto-adjusting PAP therapy. Patient's mask leaks air. We will ensure the mask is situated properly. Patient can wear protective eye covering during sleep, and the mask can be resized. Patient experiences nasal congestion. Patient will use nasal saline spray before starting PAP, use heated PAP humidifier, clean/air dry humidifier reservoir daily, use nasal steroid spray, use ipratropium bromide nasal spray if rhinitis/rhinorrhe a is present or obtain an oronasal/oral interface. Dry mouth is a normal occurrence for people who just start out on PAP therapy because they are not used to air blowing in to the throat to hold open. Dry mouth is exacerbated for people who wear nasal PAP mask and whose jaw drops open during sleep. Not only does this create a much less efficient therapy because of leakage, it also causes dry mouth. There are a couple solutions to help prevent this type of problem. A simple solution would be to wear a chinstrap which essentially holds the jaw in place. A second solution would be a switch to a full face mask which covers both the nose and mouth. Although this is another easy solution, using a full face mask for some could seem claustrophobic or confining. There is no silver bullet solution as no single mask is right for everybody. Sometimes it takes a bit of experimentation to find a PAP mask which best meets the patient's needs as well as fits comfortably. Another tactic is to use a humidifier on your PAP machine. Most new PAP machines have integrated humidifiers. Humidification is hinton when dealing with symptoms of dry mouth because the humidifier can supply both warm and room temperate air. Even a small amount of humidity in the airflow will help nasal passages to stay hydrated. If a person is using both a full face mask and a PAP machine with a heated humidifier and is still experiencing dry mouth, an ill-fitted PAP mask might be causing the problem. Leakage can be caused by a mask that is to large or small, the wrong style mask, the cushion is degraded or simply because the mask's straps aren't adjusted correctly. If leakage occurs, dry air from the room can leak in while humidification escapes. The result is reduced humidification within the circuit and resulting in dry throat and mouth. Finally, beyond factors involving the PAP machine and mask, dry mouth can also be caused or worsened by dehydration. The general recommendation to during eight 8 oz. glasses of water a day might be too little for many people. When people drink large amounts of coffee or other caffeine beverages, or sweat a lot during the day, making sure to rehydrate is an important part of PAP therapy. Patient tends to take of the PAP mask during sleep. We reassured patient that this is common. We address all other areas of headgear/nasal interface problems, especially nasal congestion. Patient can use humidification +/- chinstrap, put low-pressure alarm on blower unit to awaken patient to reposition mask and set alarm at night for patient to check headgear. Provided the patient with a list of local home care stores where positive airway pressure (PAP) units, accouterments, and services are available. Home care store selection is based on patient's insurance carrier. Patient will setup an appointment with [facility] for supplies and pressure adjustments. A major predictor of success with use of PAP is follow-up with both the respiratory supplier and the treating physician. The respiratory supplier optimally will follow-up within two weeks after starting use while the treating physician optimally will follow-up within 90 days after starting therapy to assess adherence and effectiveness of treatment. The download results can show the treating physician information about adherence to treatment, residual AHI while on treatment and presence of large mask leakage. This information is especially helpful if the patient has residual sleepiness despite treatment. General information on sleep disordered breathing, evaluation of sleep disordered breathing, treatment with PAP therapy, and living with PAP therapy were covered. We discussed with the patient the impact of weight on: Sleep disordered breathing Hypertension Hyperlipidemia DM We discussed with the patient the benefit of PAP therapy on: Sleep disordered breathing Depression/Anxiety Rhinitis Hypertension DM Educated the patient on sleep hygiene measures. Relaxing rituals to rest easy, understanding foods with positive and negative impact on sleep, creating a peaceful sleep environment, timing of exercise, using herbal sleep aids, and practicing sleep-friendly meditation were covered. To determine how much sleep is needed, the patient will assess where she falls on the spectrum, examine what lifestyle factors such as work schedules and stress are affecting the quality and quantity of sleep. In general, adults need 7-9 hours of sleep. Educated the patient regarding foods that promote sleep. These include but are not limited to cherries, bananas, toast, oatmeal, and warm milk. Educated the patient regarding foods and drinks to avoid before bedtime. These include but are not limited to aged cheese, chocolate, spicy foods, tomato-based sauces, soy, ginseng tea and processed meat. Advocated influenza vaccination annually and pneumonia vaccination ATIYA. Advocated weight loss through diet and exercise. Patient's ideal body weight according to height and gender is up to 130 lbs. Encouraged patient to adjust caloric intake to maintain/achieve ideal body weight, emphasizing on fruits, vegetables, whole grains, and fat-free or low-fat products. These include lean meats, poultry, fish, beans, eggs, and nuts and foods that are low in saturated fats, trans-fats, cholesterol, salt (sodium), and glycemic index. Stressed the importance of regular exercise up to the patient's capacity limits. In this case, we recommend 20 min daily walking, 2 days a week of resistance training. Patient to monitor BP daily and bring records to PCP for further management. 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 Non-pharmacologic therapy options for periodic limb movement disorder include avoidance of aggravating drugs and substances, mental alerting activities, short daily hemodialysis for patients in renal failure, exercise, leg massage, stretching calf muscles, use of a weighted blanket and applied heat. Patient will cut down on caffeine intake. BUN, Creatinine, Vitamin E, Vitamin B12, RBC folate, Iron, TIBC, Ferritin, Magnesium, Hgb and Hct levels are within normal limits. We will hold off on dopaminergic therapy for now. PAP compliance downloaded and interpreted x 20 minutes. Data reviewed and explained to the patient. Average apnea/hypopnea index (AHI) is 2.3. Patient used PAP > 4 hours 89% of the time. PAP is set at 10-13 cmH2O. PAP will remain at 10-13 cmH2O. Oxygen supplementation: none Keep ramp start at 4 cmH2O. Keep ramp duration at 20 minutes. Keep EPR +1 ramp only. Keep humidifier level at automatic mode. Keep tube temperature at automatic mode. Patient is benefiting from PAP therapy. Encouraged patient to maintain PAP use more than 70% of the time. Statement of PAP use and benefits will be sent to the home care store. Educated the patient on problems and solutions associated with positive airway pressure (PAP) use. Difficulty tolerating pressure, mask leaks, intolerance of interface, nasal congestion, claustrophobic response, dry mouth, and unintentional mask removal during sleep were covered. Patient has some difficulty tolerating pressure. Patient is advised to practice wearing PAP daily while awake, lower pressure with or without sleeping on sides, activate PAP ramp feature, have blower checked to make sure pressure is set as prescribed and return to sleep center for consideration of auto-adjusting PAP therapy. Patient's mask leaks air. We will ensure the mask is situated properly. Patient can wear protective eye covering during sleep, and the mask can be resized. Patient experiences nasal congestion. Patient will use nasal saline spray before starting PAP, use heated PAP humidifier, clean/air dry humidifier reservoir daily, use nasal steroid spray, use ipratropium bromide nasal spray if rhinitis/rhinorrhe a is present or obtain an oronasal/oral interface. Dry mouth is a normal occurrence for people who just start out on PAP therapy because they are not used to air blowing in to the throat to hold open. Dry mouth is exacerbated for people who wear nasal PAP mask and whose jaw drops open during sleep. Not only does this create a much less efficient therapy because of leakage, it also causes dry mouth. There are a couple solutions to help prevent this type of problem. A simple solution would be to wear a chinstrap which essentially holds the jaw in place. A second solution would be a switch to a full face mask which covers both the nose and mouth. Although this is another easy solution, using a full face mask for some could seem claustrophobic or confining. There is no silver bullet solution as no single mask is right for everybody. Sometimes it takes a bit of experimentation to find a PAP mask which best meets the patient's needs as well as fits comfortably. Another tactic is to use a humidifier on your PAP machine. Most new PAP machines have integrated humidifiers. Humidification is hinton when dealing with symptoms of dry mouth because the humidifier can supply both warm and room temperate air. Even a small amount of humidity in the airflow will help nasal passages to stay hydrated. If a person is using both a full face mask and a PAP machine with a heated humidifier and is still experiencing dry mouth, an ill-fitted PAP mask might be causing the problem. Leakage can be caused by a mask that is to large or small, the wrong style mask, the cushion is degraded or simply because the mask's straps aren't adjusted correctly. If leakage occurs, dry air from the room can leak in while humidification escapes. The result is reduced humidification within the circuit and resulting in dry throat and mouth. Finally, beyond factors involving the PAP machine and mask, dry mouth can also be caused or worsened by dehydration. The general recommendation to during eight 8 oz. glasses of water a day might be too little for many people. When people drink large amounts of coffee or other caffeine beverages, or sweat a lot during the day, making sure to rehydrate is an important part of PAP therapy. Patient tends to take of the PAP mask during sleep. We reassured patient that this is common. We address all other areas of headgear/nasal interface problems, especially nasal congestion. Patient can use humidification +/- chinstrap, put low-pressure alarm on blower unit to awaken patient to reposition mask and set alarm at night for patient to check headgear. Provided the patient with a list of local home care stores where positive airway pressure (PAP) units, accouterments, and services are available. Home care store selection is based on patient's insurance carrier. Patient will setup an appointment with [facility] for supplies and pressure adjustments. A major predictor of success with use of PAP is follow-up with both the respiratory supplier and the treating physician. The respiratory supplier optimally will follow-up within two weeks after starting use while the treating physician optimally will follow-up within 90 days after starting therapy to assess adherence and effectiveness of treatment. The download results can show the treating physician information about adherence to treatment, residual AHI while on treatment and presence of large mask leakage. This information is especially helpful if the patient has residual sleepiness despite treatment. General information on sleep disordered breathing, evaluation of sleep disordered breathing, treatment with PAP therapy, and living with PAP therapy were covered. We discussed with the patient the impact of weight on: Sleep disordered breathing Hypertension Hyperlipidemia DM We discussed with the patient the benefit of PAP therapy on: Sleep disordered breathing Depression/Anxiety Rhinitis Hypertension DM Educated the patient on sleep hygiene measures. Relaxing rituals to rest easy, understanding foods with positive and negative impact on sleep, creating a peaceful sleep environment, timing of exercise, using herbal sleep aids, and practicing sleep-friendly meditation were covered. To determine how much sleep is needed, the patient will assess where she falls on the spectrum, examine what lifestyle factors such as work schedules and stress are affecting the quality and quantity of sleep. In general, adults need 7-9 hours of sleep. Educated the patient regarding foods that promote sleep. These include but are not limited to cherries, bananas, toast, oatmeal, and warm milk. Educated the patient regarding foods and drinks to avoid before bedtime. These include but are not limited to aged cheese, chocolate, spicy foods, tomato-based sauces, soy, ginseng tea and processed meat. Advocated influenza vaccination annually and pneumonia vaccination ATIYA. Advocated weight loss through diet and exercise. Patient's ideal body weight according to height and gender is up to 130 lbs. Encouraged patient to adjust caloric intake to maintain/achieve ideal body weight, emphasizing on fruits, vegetables, whole grains, and fat-free or low-fat products. These include lean meats, poultry, fish, beans, eggs, and nuts and foods that are low in saturated fats, trans-fats, cholesterol, salt (sodium), and glycemic index. Stressed the importance of regular exercise up to the patient's capacity limits. In this case, we recommend 20 min daily walking, 2 days a week of resistance training. Patient to monitor BP daily and bring records to PCP for further management. Follow-up: 1 year, February 2026 Not available 03/12/2025 15:42:23 Plan of Treatment Reminders Order Date Submit Date Provider Last Modified By Organization Details Last Modified Time Details Appointments Follow Up 30 2025 01:00P Ayah Mak MD Not available Not available Not available Lab CMP, serum or plasma [address] [facility], [address] [place], [address], 10/19/2023 08:13:51 HbA1c (hemoglob in A1c), blood [address] (Lab), [address] [place], [address], 10/19/2023 08:13:51 lipid panel, serum [address] [facility], [address] [place], [address], 10/19/2023 08:13:51 Referral None recorded. Procedures None recorded. Surgeries None recorded. Imaging MAMMO, screening , digital, bilateral 2022 023 [id number] [id number] Not available 07/27/2023 08:59:42 Medication Orders pioglitaz one 30 mg tablet 2022 023 [facility], [address] [place], [address], 11/11/2023 12:22:24 Mounjaro 7.5 mg/0.5 mL subcutane ous pen injector 2022 023 [facility], [address] [place], [address], 02/23/2024 14:46:10 Mounjaro 10 mg/0.5 mL subcutane ous pen injector 2022 023 [facility], [address] [place], [address], 02/23/2024 14:46:03 Mounjaro 12.5 mg/0.5 mL subcutane ous pen injector [address] [facility], [address] [place], [address], 01/02/2024 17:17:10 Patient TargetsNo targets recorded. Patient Instructions Encounter Date Encounter Id Patient Instructions Last Modified By Organization Details Last Modified Time 07/13/2023 [id number] mo fu dm, obese, lipid, mdd, htn Not available 07/14/2023 16:45:09 11/11/2023 [id number] 3 mo fu dm, obese, lipid, mdd, htn with new provider. 11/11/23 pt aware of [place] departure. Not available 11/11/2023 11:54:10 Reason for Referral None Reported. Results Created Date Observation Date Name Description Value Unit Range Abnormal Flag Note LastModifiedBy Organization Detail LastModifiedTime 07/08/2007/08/2023 LIPID PANEL cholesterol 156 mg/dL 140-19 9 [facility] ADARSH NSUS RECOM MENDA TION FOR AROLDO STERO L: ADULT CHILD LOW RISK: <200 <170 BORDE RLINE : <200- 239 ----- HIGH RISK: >240 >200 Not Available [facility] (Lab) [address] [place], [address], 07/08/2023 19:11:34 07/08/2007/08/2023 LIPID PANEL triglyceride s 156 mg/dL 0-150 high NIH ADARSH NSUS REPOR T RECOM MENDA TION FOR TRIGL YCERI KEILY: ADULT CHILD LOW RISK: <150 ----- BODER LINE: 150-1 99 ----- HIGH RISK: >200 ----- Not Available [facility] (Lab) [address] [place], [address], 07/08/2023 19:11:34 07/08/20 23 07/08/2023 LIPID PANEL HDL cholesterol 39 mg/dL 40- low Not Available [facility] (Lab) [address] [place], [address], 07/08/2023 19:11:34 07/08/20 23 07/08/2023 LIPID PANEL LDL cholesterol, calculated 86 mg/dL 0-130 [facility] ADARSH NSUS REPOR T RECOM MENDA TIONS FOR LDL: ADULT CHILD LOW RISK <130 <110 (OPTI MAL LDL) <100 ----- BORDE RLINE : 130-1 59 ----- HIGH RISK: >160 >130 A TRIGL YCERI DE RESUL T >400 INVAL IDATE S THE CALCU LATIO N FOR LDL FRACT IONAT ION - THE LDL RESUL T WILL NOT BE REPOR MEGAN. Not Available [facility] (Lab) [address] [place], [address], 07/08/2023 19:11:34 07/08/20 23 07/08/2023 COMPR EHENS MIHAI METAB OLIC PANEL sodium 136 mmol/ L 137-14 5 low Not Available [facility] (Lab) [address] [place], [address], 07/08/2023 19:11:39 07/08/20 23 07/08/2023 COMPR EHENS MIHAI METAB OLIC PANEL potassium 4.4 mmol/ L 3.5-5. 1 Not Available [facility] (Lab) [address] [place], [address], 07/08/2023 19:11:39 07/08/20 23 07/08/2023 COMPR EHENS MIHAI METAB OLIC PANEL chloride 101 mmol/ L 98-107 Not Available [facility] (Lab) [address] [place], [address], 07/08/2023 19:11:39 07/08/20 23 07/08/2023 COMPR EHENS MIHAI METAB OLIC PANEL carbon dioxide 29 mmol/ L 22-30 Not Available [facility] (Lab) [address] [place], [address], 07/08/2023 19:11:39 07/08/20 23 07/08/2023 COMPR EHENS MIHAI METAB OLIC PANEL anion gap 10.4 mmol/ L 14-22 low Not Available [facility] (Lab) [address] [place], [address], 07/08/2023 19:11:39 07/08/20 23 07/08/2023 COMPR EHENS MIHAI METAB OLIC PANEL glucose 144 mg/dL 70-99 high Not Available [facility] (Lab) [address] [place], [address], 07/08/2023 19:11:39 07/08/20 23 07/08/2023 COMPR EHENS MIHAI METAB OLIC PANEL BUN 9 mg/dL 8-19 Not Available [facility] (Lab) [address] [place], [address], 07/08/2023 19:11:39 07/08/20 23 07/08/2023 COMPR EHENS MIHAI METAB OLIC PANEL creatinine 0.55 mg/dL 0.66-1 .25 low Not Available [facility] (Lab) [address] [place], [address], 07/08/2023 19:11:39 07/08/2007/08/2023 COMPR EHENS MIHAI METAB OLIC PANEL GFR >60 Refer ence Range : [place] ge GFR Healt hy Adult : >60 mL/mi n/1.7 3 m2 Chron ic Kidne y Disea se: 15-60 mL/mi n/1.7 3 m2 Kidne y Failu re: <15/m L/min /1.73 m2 www.n iddk. nih.g ov The MDRD study equat ion has not been valid ated in child mildred <18 years of age; pregn ant women ; the elder ly >85 years of age; or in some racia l or ethni c subgr oups, such as Hispa nics. Outsi de the valid ated ellie eters , estim ated GFR is less accur ate, requi ring clini zachary judgm ent on a case- by-ca se basis . Clini zachary inter preta tion for other races and ages must be made by the clini landon. The MDRD study equat ion has not been valid ated for the evalu ation of serum creat inine relat ed to nutri danii l statu s or medic ation usage . For perso ns <18 years of age, a pedia tric GFR calcu lator is avail able on the [facility] websi te: https ://ambar posada.lucas bhakta/katiuska ofess ional s/kdo qi/gf r_cal culat or Not Available [facility] (Lab) [address] [place], [address], 07/08/2023 19:11:39 07/08/20 23 07/08/2023 COMPR EHENS MIHAI METAB OLIC PANEL alkaline phosphatase 105 U/L 38-[address] [facility] (Lab) [address] [place], [address], 07/08/2023 19:11:39 07/08/20 23 07/08/2023 COMPR EHENS MIHAI METAB OLIC PANEL alanine aminotransfe rase 14 U/L 0-[address] [facility] (Lab) [address] [place], [address], 07/08/2023 19:11:39 07/08/20 23 07/08/2023 COMPR EHENS MIHAI METAB OLIC PANEL aspartate aminotransfe rase 17 U/L 15-[address] [facility] (Lab) [address] [place], [address], 07/08/2023 19:11:39 07/08/20 23 07/08/2023 COMPR EHENS MIHAI METAB OLIC PANEL bilirubin, total 0.40 mg/dL 0.20-1 .30 Not Available [facility] (Lab) [address] [place], [address], 07/08/2023 19:11:39 07/08/20 23 07/08/2023 COMPR EHENS MIHAI METAB OLIC PANEL calcium 8.7 mg/dL 8.4-10 .2 Not Available [facility] (Lab) [address] [place], [address], 07/08/2023 19:11:39 07/08/20 23 07/08/2023 COMPR EHENS MIHAI METAB OLIC PANEL total protein 6.8 g/dL 6.3-8. 2 Not Available [facility] (Lab) [address] [place], [address], 07/08/2023 19:11:39 07/08/20 23 07/08/2023 COMPR EHENS MIHAI METAB OLIC PANEL albumin 3.7 g/dL 3.4-5. 0 Not Available [facility] (Lab) [address] [place], [address], 07/08/2023 19:11:39 07/08/20 23 07/08/2023 COMPR EHENS MIHAI METAB OLIC PANEL globulin 3.1 g/dL 2.6-4. 2 Not Available [facility] (Lab) [address] [place], [address], 07/08/2023 19:11:39 07/08/20 23 07/08/2023 COMPR EHENS MIHAI METAB OLIC PANEL A/G ratio 1.2 ratio 1.0-2. 0 Not Available [facility] (Lab) [address] [place], [address], 07/08/2023 19:11:39 07/08/20 23 07/08/2023 VITAM IN D 25-HY DROXY [id number] 37.2 NG/mL 30-100 Vitam in D Statu s: Defic ient: <20 ng/mL Insuf ficie nt: 20-29 ng/mL Suffi cient : 30-10 0 ng/mL Not Available [facility] (Lab) [address] [place], [address], 07/08/2023 19:13:00 07/08/20 23 07/08/2023 MICRO ALBUM IN RANDO M URINE microalbumin , urine <6.0 mg/L 0.0-16 .6 Not Available [facility] (Lab) [address] [place], [address], 07/08/2023 19:17:08 07/08/2007/08/2023 HEMOG LOBIN A1C HA1C 6.7 % 4.0-6. 0 high Diabe americo Juniee compa Crite tree: <5.7% Consi stent with absen ce of diabe americo 5.7-6 .4% Consi stent with incre ased risk for diabe americo (pred iabet es) >OR=6 .5% Consi stent with diabe americo REFER ENCE: Diabe americo Care 2016, 39( ppl.1 ):s13 -s22 Not Available [facility] (Lab) [address] [place], [address], 07/08/2023 20:10:12 10/07/20 23 10/07/2023 COMPR EHENS MIHAI METAB OLIC PANEL sodium 133 mmol/ L 137-14 5 low Not Available [facility] (Lab) [address] [place], [address], 10/07/2023 13:38:53 10/07/20 23 10/07/2023 COMPR EHENS MIHAI METAB OLIC PANEL potassium 4.2 mmol/ L 3.5-5. 1 Not Available [facility] (Lab) [address] [place], [address], 10/07/2023 13:38:53 10/07/20 23 10/07/2023 COMPR EHENS MIHAI METAB OLIC PANEL chloride 100 mmol/ L 98-107 Not Available [facility] (Lab) [address] [place], [address], 10/07/2023 13:38:53 10/07/20 23 10/07/2023 COMPR EHENS MIHAI METAB OLIC PANEL carbon dioxide 29 mmol/ L 22-30 Not Available [facility] (Lab) [address] [place], [address], 10/07/2023 13:38:53 10/07/20 23 10/07/2023 COMPR EHENS MIHAI METAB OLIC PANEL anion gap 8.2 mmol/ L 14-22 low Not Available [facility] (Lab) [address] [place], [address], 10/07/2023 13:38:53 10/07/20 23 10/07/2023 COMPR EHENS MIHAI METAB OLIC PANEL glucose 137 mg/dL 70-99 high Not Available [facility] (Lab) [address] [place], [address], 10/07/2023 13:38:53 10/07/20 23 10/07/2023 COMPR EHENS MIHAI METAB OLIC PANEL BUN 10 mg/dL 8-19 Not Available [facility] (Lab) [address] [place], [address], 10/07/2023 13:38:53 10/07/20 23 10/07/2023 COMPR EHENS MIHAI METAB OLIC PANEL creatinine 0.64 mg/dL 0.66-1 .25 low Not Available [facility] (Lab) [address] [place], [address], 10/07/2023 13:38:53 10/07/20 23 10/07/2023 COMPR EHENS MIHAI METAB OLIC PANEL GFR >60 Refer ence Range : [place] ge GFR Healt hy Adult : >60 mL/mi n/1.7 3 m2 Chron ic Kidne y Disea se: 15-60 mL/mi n/1.7 3 m2 Kidne y Failu re: <15/m L/min /1.73 m2 www.n iddk. nih.g ov The MDRD study equat ion has not been valid ated in child mildred <18 years of age; pregn ant women ; the elder ly >85 years of age; or in some racia l or ethni c subgr oups, such as Hispa nics. Outsi de the valid ated ellie eters , estim ated GFR is less accur ate, requi ring clini zachary judgm ent on a case- by-ca se basis . Clini zachary inter preta tion for other races and ages must be made by the clini landon. The MDRD study equat ion has not been valid ated for the evalu ation of serum creat inine relat ed to nutri danii l statu s or medic ation usage . For perso ns <18 years of age, a pedia tric GFR calcu lator is avail able on the [facility] websi te: https ://ambar w.kid albino.o rg/pr ofess ional s/kdo qi/gf r_cal culat or Not Available [facility] (Lab) [address] [place], [address], 10/07/2023 13:38:53 10/07/20 23 10/07/2023 COMPR EHENS MIHAI METAB OLIC PANEL alkaline phosphatase 105 U/L 38-[address] [facility] (Lab) [address] [place], [address], 10/07/2023 13:38:53 10/07/20 23 10/07/2023 COMPR EHENS MIHAI METAB OLIC PANEL alanine aminotransfe rase 15 U/L 0-[address] [facility] (Lab) [address] [place], [address], 10/07/2023 13:38:53 10/07/20 23 10/07/2023 COMPR EHENS MIHAI METAB OLIC PANEL aspartate aminotransfe rase 14 U/L 15-[address] [facility] (Lab) [address] [place], [address], 10/07/2023 13:38:53 10/07/20 23 10/07/2023 COMPR EHENS MIHAI METAB OLIC PANEL bilirubin, total 0.50 mg/dL 0.20-1 .30 Not Available [facility] (Lab) [address] [place], [address], 10/07/2023 13:38:53 10/07/20 23 10/07/2023 COMPR EHENS MIHAI METAB OLIC PANEL calcium 9.3 mg/dL 8.4-10 .2 Not Available [facility] (Lab) [address] [place], [address], 10/07/2023 13:38:53 10/07/20 23 10/07/2023 COMPR EHENS MIHAI METAB OLIC PANEL total protein 6.6 g/dL 6.3-8. 2 Not Available [facility] (Lab) [address] [place], [address], 10/07/2023 13:38:53 10/07/2010/07/2023 COMPR EHENS MIHAI METAB OLIC PANEL albumin 3.5 g/dL 3.4-5. 0 Not Available [facility] (Lab) [address] [place], [address], 10/07/2023 13:38:53 10/07/20 23 10/07/2023 COMPR EHENS MIHAI METAB OLIC PANEL globulin 3.1 g/dL 2.6-4. 2 Not Available [facility] (Lab) [address] [place], [address], 10/07/2023 13:38:53 10/07/20 23 10/07/2023 COMPR EHENS MIHAI METAB OLIC PANEL A/G ratio 1.1 ratio 1.0-2. 0 Not Available [facility] (Lab) [address] [place], [address], 10/07/2023 13:38:53 10/07/20 23 10/07/2023 LIPID PANEL cholesterol 165 mg/dL 140-19 9 NIH ADARSH NSUS RECOM MENDA TION FOR AROLDO STERO L: ADULT CHILD LOW RISK: <200 <170 BORDE RLINE : <200- 239 ----- HIGH RISK: >240 >200 Not Available [facility] (Lab) [address] [place], [address], 10/07/2023 13:39:08 10/07/20 23 10/07/2023 LIPID PANEL triglyceride s 143 mg/dL 0-150 NIH ADARSH NSUS REPOR T RECOM MENDA TION FOR TRIGL YCERI KEILY: ADULT CHILD LOW RISK: <150 ----- BODER LINE: 150-1 99 ----- HIGH RISK: >200 ----- Not Available [facility] (Lab) [address] [place], [address], 10/07/2023 13:39:08 10/07/20 23 10/07/2023 LIPID PANEL HDL cholesterol 43 mg/dL 40- Not Available [facility] (Lab) [address] [place], [address], 10/07/2023 13:39:08 10/07/20 23 10/07/2023 LIPID PANEL LDL cholesterol, calculated 93 mg/dL 0-130 NIH ADARSH NSUS REPOR T RECOM MENDA TIONS FOR LDL: ADULT CHILD LOW RISK <130 <110 (OPTI MAL LDL) <100 ----- BORDE RLINE : 130-1 59 ----- HIGH RISK: >160 >130 A TRIGL YCERI DE RESUL T >400 INVAL IDATE S THE CALCU LATIO N FOR LDL FRACT IONAT ION - THE LDL RESUL T WILL NOT BE REPOR MEGAN. Not Available [facility] (Lab) [address] [place], [address], 10/07/2023 13:39:08 10/07/20 23 10/07/2023 HEMOG LOBIN A1C HA1C 6.5 % 4.0-6. 0 high Diabe americo Scree compa Crite tree: <5.7% Consi stent with absen ce of diabe americo 5.7-6 .4% Consi stent with incre ased risk for diabe americo (pred iabet es) >OR=6 .5% Consi stent with diabe americo REFER ENCE: Diabe americo Care 2016, 39(Chavez ppl.1 ):s13 -s22 Not Available [facility] (Lab) [address] [place], [address], 10/07/2023 17:22:41 10/13/20 23 MAMMO , scree compa, digit al, bilat eral [facility] [address] [facility] [place] [address] [phone] Patien t Name: BILLY MARTÍNEZ Access ion #: [id number] Sex: F : 1969 0 2 Dictat ed By: Christina Ho Attend ing Physic pineda: TATUM HOOK Orderi ng Physic pineda: TATUM HOOK Exam Date: 2022 12:55 PM Exam Name: MG DIGITA L VA BILAT SCREEN Admitt ing Diagno sis(es ): CLINIC AL HISTOR Y: Screen ing COMPAR ARSH STUDY: 1; 07/06/20 TECHNI QUE: Using a full field digita l 2D mammog gerardo unit CC, XCCL and MLO views of both breast s are perfor med. FINDIN GS: BREAST COMPOS ITION: There are scatte red areas of fibrog landul ar densit y in the bilate ral breast s. No suspic ious masses , chintan ectura l distor tion, asymme tries or suspic ious calcif icatio ns in both breast s. IMPRES DAI: No eviden ce of malign hugo. Recomm end annual mammog ruben. BIRADS : 2 - Benign Electr onical ly Signed by: Christina Ho at 2022 13:58: 45 PM Page 1 [email or web address] [facility] (Imaging) [address] [place], [address], 10/14/2023 14:13:54 Result Notes None recorded. Problems Name Problem SNOMED Code Status Onset Date Resolution Date Notes Provider Name and Address Organization Details Recorded Time Deep venous thrombosis 079528665 Active 2020 Not Available [employer] 22:45:39 Mixed anxiety and depressive disorder 002773591 Active 2020 Not Available [employer] 3 22:45:39 Restless legs 92965055 Active 2022 Not Available [facility] 22:45:39 Vitamin D deficiency 73977813 Active 2021 Not Available [facility] 3 22:45:39 Depressive disorder 76820085 Active 2021 Not Available [facility] 22:45:39 Hypertensive disorder 39695953 Active 2020 Not Available [facility] 3 22:45:39 Obese 787725813 Active 2021 Not Available [facility] 3 22:45:39 Uncontrolled type 2 diabetes mellitus 987259679 Active 2020 Not Available [facility] 3 22:45:39 Hyperlipidemi a 74719716 Active 2020 Not Available [facility] 3 22:45:40 Obstructive sleep apnea syndrome 64686666 Active 2021 Not Available [facility] 3 22:45:40 Notes:Medical History: Depre ssion/Anxiety Rhinitis Bruxism Obesity with mod OSAHS, AHI = 20, 02/26/22, on autoCPAP c/o IVRC Hypertension Hyperlipidemia T2DM PLMD Vit D deficiency Procedure History: Cholecystectomy 2000 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 Procedures Surgical History Date Name Laterality Status Provider Name and Address Organization Details Recorded Time 10/13/20 23 Most Recent Mammogram completed Isabel Hook NP [address] [facility] [address], [place], [address], [email or web address] 10/14/2023 07:50:10 12/30/19 23 Date of Last Pap Smear completed Isabel Harmon RN [employer] 07/13/2023 09:11:03 03/24/20 Cholecystectomy completed Not Available [facility] 01/27/2023 22:44:04 Imaging Results Imaging Date Name Status [facility]Modified by [facility] Details LastModified Time 10/13/2023 MAMMO, screening, digital, bilateral completed [email or web address] [facility] (Imaging) [address] [place], [address], 10/14/2023 14:13:54 Procedure Notes None recorded. Medical Equipment None Reported. Allergies Allergen ID Allergen Name Allergen Category Reaction Reaction Severity Criticality Documentation Date Start Date Code Code System Note Provider Name and Address Organization Details Recorded Time 90943 Product containin g penicilli n (product) medicatio n Not available Not available Not available 01/27/2023 45162 8001 SNOMED Not Available [facility] 3 22:47:30 57993 morphine medicatio n Not available Not available Not available 01/27/2023 7052 RxNorm Not Available [facility] 3 22:47:30 00403 Monistat Simple Therapy medicatio n other Not available Not available 01/27/2023 08758 72 RxNorm skin feeli ng on fire. Not Available [facility] 3 22:47:30 80558 metformin medicatio n Not available Not available Not available 01/27/2023 6809 RxNorm Not Available [facility] 3 22:47:30 68337 levofloxa muriel medicatio n Not available Not available Not available 01/27/2023 19971 RxNorm Not Available [facility] 3 22:47:30 52597 latex environme nt,medica tion Not available Not available Not available 01/27/2023 05197 91 RxNorm Not Available [facility] 3 22:47:30 20157 Jardiance medicatio n Not available Not available Not available 01/27/2023 58291 59 RxNorm Not Available [facility] 3 22:47:31 66663 hydrocort isone medicatio n Not available Not available Not available 01/27/2023 5492 RxNorm Not Available [facility] 3 22:47:31 28674 Farxiga medicatio n Not available Not available Not available 01/27/2023 55495 72 RxNorm Not Available [facility] 3 22:47:31 19472 empaglifl ozin medicatio n Not available Not available Not available 01/27/2023 08901 53 RxNorm Not Available [facility] 3 22:47:31 Medications Name Sig Start Date Stop Date Status Note LastModified by Organization Details LastModified Time atorvasta tin 10 mg tablet TAKE ONE TABLET BY MOUTH ONCE DAILY IN THE EVENING FOR CHOLESTE ROL active Not Available Not Available No t Available fluconazo le 150 mg tablet TAKE ONE TABLET BY MOUTH TODAY. May repeat in 1 week if symptoms persist Use as needed for vaginal yeast 07/13 completed Not Available Not Available Not Available metoprolo l succinate ER 50 mg tablet,ex tended release 24 hr TAKE 1 TABLET BY MOUTH EVERY DAY active Not Available Not Available No t Available glipizide 10 mg tablet TAKE TWO (2) TABLETS BY MOUTH TWICE A DAY MORNING & EVENING FOR DIABETES active Not Available Not Available No t Available metoprolo l succinate ER 100 mg tablet,ex tended release 24 hr TAKE 1 TABLET BY MOUTH EVERY DAY active Not Available Not Available No t Available fexofenad ine 180 mg tablet Take 1 tablet every day by oral route. 03/12 completed Not Available Not Available Not Available aspirin 81 mg tablet,de layed release Take 1 tablet every day by oral route after meals for 90 days. active Not Available Not Available No t Available OneTouch Ultra Test strips USE TO TEST FASTING GLUCOSE DAILY 01/02 completed Not Available Not Available Not Available folic acid 1 mg tablet Take 1 tablet every day by oral route. 07/13 completed Not Available Not Available Not Available monteluka st 10 mg tablet Take 1 tablet every day by oral route. 05/12 completed Not Available Not Available Not Available pioglitaz one 30 mg tablet TAKE ONE (1) TABLET BY MOUTH ONCE DAILY DIRECTED FOR DIABETES active Not Available Not Available No t Available lisinopri l 2.5 mg tablet TAKE 1 TABLET BY MOUTH ONCE DAILY DIRECTED FOR BLOOD PRESSURE active Not Available Not Available No t Available escitalop ruben 10 mg tablet Take 1 tablet every day by oral route. 06/19 completed Not Available Not Available Not Available escitalop ruben 20 mg tablet TAKE 1 TABLET BY MOUTH EVERY DAY active Not Available Not Available No t Available aripipraz ole 5 mg tablet 01/13 completed Not Available Not Available Not Available bupropion HCl XL 150 mg 24 hr tablet, extended release Take 1 tablet every day by oral route. 03/20 completed Not Available Not Available Not Available duloxetin e 30 mg capsule,d elayed release TAKE 1 CAPSULE BY MOUTH ONCE DAILY DIRECTED active Not Available Not Available No t Available cholecalc iferol (vitamin D3) 03/12 completed 5,000 IU Not Available Not Available Not Available aripipraz ole 2 mg tablet 07/13 completed psych Not Available Not Available Not Available OneTouch Delica Lancets 33 gauge USE TO TEST BLOOD SUGAR ONCE DAILY 12/21 completed Not Available Not Available Not Available lidocaine 4 % topical gel 02/03 completed during yeast infectio n. Not Available Not Available Not Available Farxiga 10 mg tablet TAKE 1 TABLET BY MOUTH EVERY DAY 01/13 completed Not Available Not Available Not Available Trulicity 1.5 mg/0.5 mL subcutane ous pen injector Take 1.5 mg SubQ once a week as directed . 11/05 completed Changed to 3.0 weekly 06/2021 Not Available Not Available Not Available Vraylar 1.5 mg capsule 1 cap po daily active Not Available Not Available No t Available OneTouch Ultra2 Meter 12/21 completed Not Available Not Available Not Available Trulicity 3 mg/0.5 mL subcutane ous pen injector INJECT 3 MG (0.5 ML) UNDER THE SKIN ONCE A WEEK 02/22 completed Not Available Not Available Not Available Mounjaro 7.5 mg/0.5 mL subcutane ous pen injector Use 7.5mg once a week as directed . 02/22 completed Not Available Not Available Not Available Mounjaro 10 mg/0.5 mL subcutane ous pen injector INJECT 10 MG EVERY WEEK BY SUBCUTAN EOUS ROUTE. USE AFTER 7.5MG DOSE 02/22 completed Not Available Not Available Not Available Mounjaro 12.5 mg/0.5 mL subcutane ous pen injector Inject 12.5 mg every week by subcutan eous route. active Not Available Not Available No t Available Auvelity 45 mg-105 mg tablet, extended release Take 1 tablet every day by oral route. active Not Available Not Available No t Available Vitals Date Recorded Body height Body mass index (BMI) Body weight Body temperature Heart rate Respiratory rate Oxygen saturation Oxygen saturation in Arterial blood by Pulse oximetry Pain severity - 0-10 verbal numeric rating [Score] - Reported Systolic blood pressure Diastolic blood pressure Provider Name and Address Organization Details Last Updated DateTime 3 162.56 cm 57.4 kg/m2 595935. 25 g 95.6 [degF] 87 /min 20 /min 97 % 97 % 0 144 mm[Hg] 84 mm[Hg] Isabel Harmon RN [facility] [employer] [facility] 3 09:08:20 Date Recorded Body height Provider Name an d Address Organization Details Last Updated DateTime 10/07/2023 162.56 cm Isabel Harmon RN [facility] [employer] [facility] 10/07/2023 10:59:50 Date Recorded Body height Body mass index (BMI) Body weight Body temperature Heart rate Respiratory rate Oxygen saturation Oxygen saturation in Arterial blood by Pulse oximetry Pain severity - 0-10 verbal numeric rating [Score] - Reported Systolic blood pressure Diastolic blood pressure Provider Name and Address Organization Details Last Updated DateTime 3 162.56 cm 59.5 kg/m2 420814. 06 g 96.2 [degF] 91 /min 20 /min 97 % 97 % 0 132 mm[Hg] 70 mm[Hg] Isabel Harmon RN [facility] [employer] [facility] 3 11:00:07 Date Recorded Body height Body mass index (BMI) Body weight Body temperature Heart rate Systolic blood pressure Diastolic blood pressure Provider Name and Address Organization Details Last Updated DateTime 4 162.56 cm 58.4 kg/m2 427826. 84 g 97.6 [degF] 88 /min 124 mm[Hg] 72 mm[Hg] Christy Meredith MA [facility] [employer] [facility] 4 14:45:03 Date Recorded Oxygen saturation Oxygen saturation in Arterial blood by Pulse oximetry Heart rate Respiratory rate Provider Name and Address Organization Details Last Updated DateTime 02/23/2024 95 % 95 % 88 /min 15 /min Dell Mak MD [address] [place] [address], [phone], [facility] [employer] [facility] [employer] 4 15:00:51 Date Recorded Body weight Body temperature Heart rate Oxygen saturation Oxygen saturation in Arterial blood by Pulse oximetry Systolic blood pressure Diastolic blood pressure Provider Name and Address Organization Details Last Updated DateTime 5 552304. 11 g 98.2 [degF] 90 /min 98 % 98 % 124 mm[Hg] 82 mm[Hg] Dimple Barksdale MA [facility] [employer] [facility] 5 15:28:49 Date Recorded Body mass index (BMI) Body height Heart rate Respiratory rate Provider Name and Address Organization Details Last Updated DateTime 03/12/2025 56 kg/m2 162.56 cm 90 /min 15 /min Dell Mak MD [address] [facility], [facility] [address], [place], [address], [employer] 03/12/2025 15:38:55 Social History Question Answer Notes LastModified by Organizat ion Details LastModified Time Tobacco Smoking Status Never Smoker Not Available [employer] 01/27/2023 22:43:17 Do You Have An Advance Directive? No [id number] Information not available 01/27/2023 Is Blood Transfusion Acceptable In An Emergency? Yes Information not available 07/13/2023 What Is Your Level Of Caffeine Consumption? Moderate [id number] Information not available 01/27/2023 How Much Tobacco Do You Chew? None [id number] Information not available 01/27/2023 What Is Your Code Status? [email or web address] Information not available 07/13/2023 In The 14 Days Before Symptom Onset, Have You Had Close Contact With A Laboratory-confir med COVID-19 While That Case Was Ill? No [id number] Information not available 01/27/2023 In The 14 Days Before Symptom Onset, Have You Had Close Contact With A Person Who Is Under Investigation For COVID-19 While That Person Was Ill? No [id number] Information not available 01/27/2023 What Type Of Diet Are You Following? REGULAR [id number] Information not available 01/27/2023 Which Illicit Or Recreational Drugs Have You Used? None [id number] Information not available 01/27/2023 Do You Have An Electrostatic Air Filter? No MIGRATION.90394 10066 Information not available 01/27/2023 Have There Been Any Changes To Your Family Or Social Situation? No Information no t available 07/13/2023 Do You Have A Humidifier? Yes [id number] Information not available 01/27/2023 Where Do You Live? SingleLevelHouse Information not available 07/13/2023 Do You Have A Medical Power Of Envelope Sealer Operator? No Information not available 07/13/2023 Do You Have Moisture Problems In Your Home? No [id number].[id number] Information not available 01/27/2023 What Was The Date Of Your Most Recent Tobacco Screening? 03/12/2025 [email or web address] Information not available 03/12/2025 Do You Have Any Pets? No MIGRATION.[id number] 24535 Information not available 01/27/2023 What Is Your Relationship Status? Single Information not available 07/13/2023 Do You Use Your Seat Belt Or Car Seat Routinely? Yes [id number].87393 [id number] Information not available 01/27/2023 Do You Have Smoke And Carbon Monoxide Detectors In Your Home? Yes MIGRATION.[id number] 49519 Information not available 01/27/2023 Are You Passively Exposed To Smoke? No MIGRATION.17420 [id number] Information not available 01/27/2023 Are There Any Smokers In Your House? No Information not available 07/13/2023 How Much Tobacco Do You Smoke? No MIGRATION.[id number] [id number] Information not available 01/27/2023 Do You Participate In Social Media? Yes Information not available 07/13/2023 Do You Use Sunscreen Routinely? Yes MIGRATION.54405 49865 Information not available 01/27/2023 Have You Recently Traveled Abroad? No MIGRATION.16655 [id number] Information not available 01/27/2023 Do You Have Any Dietary Restrictions? No Information not available 02/23/2024 Sex: Unknown Functional Status Question Answer Note LastModified by Organizat ion Details LastModified Time What is your level of alcohol consumption? None [id number] Information not available 01/27/2023 Do you or have you ever used smokeless tobacco? Never used smokeless tobacco MIGRATION.[id number] Information not available 01/27/2023 Are you currently employed? No Information not available 11/11/2023 Have you been exposed to chemicals or toxins? Not that aware of Information not available 02/23/2024 Do you or have you ever used e-cigarettes or vape? Never used electronic cigarettes MIGRATION.[id number] Information not available 01/27/2023 What is your exercise level? None [id number] Information not available 01/27/2023 Mental Status Question Answer Note LastModified by Organization D etails LastModified Time Do you feel stressed (tense, restless, nervous, or anxious, or unable to sleep at night)? [id number] Information not available 07/13/2023 Family History Relationship Description Onset Age of this Age Resolved Age Notes LastModified by Organization Details LastModified Time Mother Alzheimer's disease Not available 01/28 14:32:18 Mother Disorder of cardiovascul ar system [email or web address] Not available 01/28 14:32:18 Mother Deep venous thrombosis [email or web address] Not available 14:32:18 Maternal Grandmother Type 2 diabetes mellitus Not available 01/28 14:32:18 Maternal Grandmother Disorder of cardiovascul ar system [email or web address] Not available 01/28 14:32:18 Paternal Grandfather Myocardial infarction [id number] Not available 01/27/2023 22:44:05 Father Neoplasm of brain [email or web address] Not available 01/28 14:32:18 Paternal Uncle Neoplasm of brain Not available 01/28 14:32:18 Brother Deep venous thrombosis [email or web address] Not available 14:32:18 Brother Type 2 diabetes mellitus [email or web address] Not available 01/28 14:32:18 Brother Disorder of cardiovascul ar system [email or web address] Not available 01/28 14:32:18 Medical History Condition Response ALLERGIES/HAYFEVER Y ANXIETY DISORDER Y OBESITY Y DEPRESSION (INCLUDING POST ) Y HYPERTENSION Y HIGH CHOLESTEROL / HYPERLIPIDEMIA Y Gynecological History Statement/Question Response Date of Last Mammogram 06/30/2022 Date of Last Colonoscopy Frequency of Cycle (Q days) Most Recent Bone Density Date of LMP 10/21/2023 Menses Monthly Y Dislike of Light during Menstrual Headac he N Date of Last Pap 01/06/2023 Date of Last Pap Smear 12/30/2022 Most Recent Mammogram 10/13/2023 Current Control Method None Obstetrics History GPAL:G 0 P 0 0 0 0 Immunizations Vaccine Type Date Status Note Provider Nam e and Address Organization Details Recorded Time Tdap 3 completed Isabel Hook, EDEN [address] [facility], [address], [place], [address], [facility] [employer] 07/14/2023 16:41:44 COVID-19, mRNA, LNP-S, PF, 30 mcg/0.3 mL dose 1 completed Not Available [facility] 01/27/2023 22:47:26 SARS-COV-2 (COVID-19) vaccine, UNSPECIFIED 1 completed Not Available [facility] 01/27/2023 22:47:26 SARS-COV-2 (COVID-19) vaccine, UNSPECIFIED 1 completed Not Available [facility] hospital 01/27/2023 22:47:26 Influenza, split virus, quadrivalent, preservative 1 completed Not Available [facility] 01/27/2023 22:47:26 Past Encounters Encounter ID Performer Location Encounter Start Date Encounter Closed Date Diagnosis/Indication Diagnosis SNOMED-CT Code Diagnosis ICD10 Code Diagnosis Note [id number] Calderon Franklin MD [address] [address] 03/20/2021 00:00:00 03/20/2021 17:14:58 [id number] Calderon Franklin MD [address] [address] 03/26/2021 00:00:00 03/26/2021 11:29:22 [id number] Calderon Franklin MD [address] [address] 05/15/2021 00:00:00 05/15/2021 15:29:34 [id number] Calderon Franklin MD [facility] [address] [place] [address] 06/19/2021 00:00:00 06/19/2021 11:01:42 [id number] Calderon Franklin MD [facility] [address] [place] [address] 06/26/2021 00:00:00 06/26/2021 15:59:08 [id number] Calderon Franklin MD [facility] [address] [place] [address] 07/30/2021 00:00:00 07/30/2021 16:40:48 [id number] Calderon Franklin MD [facility] [address] [place] [address] 11/05/2021 00:00:00 11/05/2021 11:04:24 [id number] Calderon Franklin MD [facility] [address] [place] [address] 01/19/2022 00:00:00 01/19/2022 17:38:36 [id number] Calderon Franklin MD [facility] [address] [place] [address] 02/03/2022 00:00:00 02/03/2022 11:04:12 [id number] Calderon Franklin MD [facility] [address] [place] [address] 04/29/2022 00:00:00 04/30/2022 10:08:03 [id number] Calderon Franklin MD [facility] [address] [place] [address] 05/12/2022 00:00:00 05/12/2022 11:03:29 [id number] Calderon Franklin MD [facility] [address] 10/09/2022 00:00:00 10/09/2022 10:07:30 [id number] Calderon Franklin MD [address] [address] 10/13/2022 00:00:00 10/13/2022 10:58:03 [id number] Dell Mak MD [facility] [address] [address] 12/21/2022 00:00:00 12/21/2022 14:29:19 [id number] Calderon Franklin MD [address] [address] 01/13/2023 00:00:00 01/13/2023 11:21:15 [id number] Dell Mak MD [facility] [address] [address] 01/14/2023 00:00:00 01/14/2023 12:50:50 [id number] Isabel Hook NP [address] [address] 07/08/2023 11:16:07 07/08/2023 12:39:54 [id number] Isabel Hook NP [address] [address] 07/13/2023 08:54:48 07/13/2023 09:38:37 Depressive disorder 50297166 F32.A Auvelity 45 mg-105 mg po daily.Dulo xetine 30 mg po daily.Pérez pro 20 mg po daily.Vray lar 1.5 mg po daily. Hypertensive disorder 38 410632 I10 ASA 81 mg po daily.Breanne nopril 2.5 mg po dailyMetop rolol Succinate ER 100 mg po daily.Meto prolol Succinate ER 50 mg po daily. Obese [id number] E66.9 Diet and exercise discussed. Obstructiv e sleep apnea syndrome 42821658 G47.33 Vitamin D deficiency 347 79764 E55.9 d3 5000 IU Restless legs 69154938 G 25.81 Uncontroll ed type 2 diabetes mellitus 343251760 E11.65 Glipizide 10 mg 2 tabs po bidPioglit azone 30 mg po dailyTruli city 3 mg weekly. Administra tion of diphtheria, pertussis, and tetanus vaccine 326495159 Z23 Hyperlipidemia 57227353 E78.5 Atorvastat in 10 mg po nightly. Screening for malignant neoplasm of breast 226951306 Z12.39 [id number] Isabel Hook NP [address] [address] 10/07/2023 10:02:29 10/07/2023 10:46:24 [id number] Isabel Hook NP [address] [address] 11/11/2023 10:49:44 11/11/2023 11:56:12 Depressive disorder 99994738 F32.A Auvelity 45 mg-105 mg po daily.Dulo xetine 30 mg po daily.Pérez pro 20 mg po daily.Vray lar 1.5 mg po daily.Seei ricarda psych. Hypertensive disorder 38 157403 I10 ASA 81 mg po daily.Breanne nopril 2.5 mg po dailyMetop rolol Succinate ER 100 mg po daily.Meto prolol Succinate ER [address] [facility] . Obese 112954719 E66.9 Diet and exercise discussed. Obstructiv e sleep apnea syndrome 96705921 G47.33 CPAP Vitamin D deficiency 347 37627 E55.9 d3 5000 IU Restless legs 61139087 G 25.81 Uncontroll ed type 2 diabetes mellitus 339524169 E11.65 Glipizide 10 mg 2 tabs po bidPioglit azone 30 mg po dailyTruli city 3 mg weekly. pt no longer getting from [facility]. She has dual coverage insurance. 09/2023 fasting glucose 137 with A1C 6.7. 11/11/23 will change from trulicity to mounjaro for 2 incretin receptors to assist with satiety, weight, and glucose management for diabetes. Hyperlipidemia 10768182 E78.5 Atorvastat in 10 mg po nightly. [id number] Dell Mak MD [facility] [address] [address] 02/23/2024 14:30:32 02/24/2024 09:45:08 Obstructive sleep apnea syndrome 89645599 G47.33 [id number] Dell Mak MD [facility] [address] [address] 03/12/2025 15:12:33 03/13/2025 09:29:57 Obstructive sleep apnea syndrome 67620567 G47.33 Health Concerns Section Related Observation LastModified by Organization Detai ls LastModified Time None Recorded Concern Status LastModified by Organization Details LastModified Time None Recorded Advance Directives Directive N: Payers Encounter Date Sequence Insurance Name Policy Number Policy Graves Covered Member ID Graves Member ID Guarantor Name 07/13/2023 1 [facility] - DOS ON OR AFTER 21 (MEDICAID REPLACEMENT - HMO) Nguyen Poon Martínez [id number] Nguyen Poon Peter 10/07/2023 2 [place] [employer] Nguyen Poon Martínez [id number] Nguyen Poon Peter 10/07/2023 1 [place] Poon Martínez [id number] Nguyen Poon Peter 11/11/2023 2 [place] [employer] [place] Nguyen Poon Peter [id number] Nguyen Poon Peter 11/11/2023 1 [place] Poon Peter [id number] Nguyen Poon Peter 02/23/2024 2 [place] [employer] [place] Nguyen Poon Peter [id number] Nguyen Poon Peter 02/23/2024 1 [place] Poon Peter [id number] Nguyen Poon Peter 03/12/2025 1 [place] Poon Peter [id number] Nguyen Poon Peter Notes Date Note Type Note Provider Name and Address Organization Details Recorded Time 07/13/2023 text/html Here for check u p. Depression- states blood work was good and feeling good. Started on auvelity (less naps than prior), duloxetine, lexapro. vraylarDM- states hitting donuts hard. Eating dairy armendariz a lot. Trulicity. Pioglitazone. Not checking fasting finger sticks. Will start.Has been eating more chicken and veggies. Has been trying to do better meals.Depression makes her eat donuts and ice cream. Still drinking coke.HTN- stable. Will be checking twice daily. New medication can increase bp.Sleep- 4-5 hours nightly. Less naps in last week. Generally several naps. Isabel Hook NP [address], [address], [place], [address], [employer] 07/14/2023 16:45:14 11/11/2023 text/html Here for check u p. Depression- states blood work was good and feeling good. Started on auvelity (less naps than prior), duloxetine, lexapro. vraylar. Seeing therapist and psych.DM- Now has dual insurance. States doesn't need to use [facility]. A1C 6.5 now.Not eating great. Eating out often and not great choices. States hungry a lot. Not feeling satisfied or full. Has gained HTN- stable. Will be checking twice daily. New medication can increase bp.Sleep- 4-5 hours nightly. Less naps in last week. Generally several naps. Isabel Hook NP [address], [address], [place], [address], [employer] 11/11/2023 11:54:40 02/23/2024 text/html Primary care/Ref erring provider: Isabel Hook NP During the [facility] home sleep study on 02/26/22, AHI = 20.During the [facility] titration sleep study on 06/02/22, PLMI = 11.At home since 01/14/23, the patient uses a [employer]Med AirSense 11 autoset unit with heated humidification. The patient does not need the ramp to start low and go up slowly on the pressure anymore. There is some xerostomia in a.m. There is no hose/mask condensation with water.The patient wears a [employer] small AirFit N30i nasal mask without chin strap. There is no claustrophobia, no nostril/nose bridge irritation, no facial rash, no facial numbness, no nosebleeding.The patient feels more refreshed upon waking and daytime alertness is improved. Energy levels are sustained until early afternoon, around 2 pm.At home, the patient sleeps from 9 pm to 6 am am and wakes up with an alarm.Snoring: heavy, since 1980s.Snorting: noChoking: yesCoughing: yesGasping: noGagging: noSighing: yesWitnessed apnea: yesTwitching or jerking of leg(s), arm(s), body, head: yesTeeth grinding: yesTeeth clenching: yesSleeptalking: yesSleepwalking: noSleep crying: noBedwetting: noTongue/lip/gum/cheek biting: noSleeping with open mouth: yesSleep paralysis: noHypnagogic hallucinations: noHypnopompic hallucinations: noVivid dreams: yesDifficulty with sleep onset: yesDifficulty with sleep maintenance: yesSleep interruptions: for no known reasonsPatient wakes up with: fatigue, xerostomia, sore throat, hoarse voice, headaches, jaw painDaytime cataplexy: noMorning hypersomnolence: yesAfternoon hypersomnolence: yesCaffeine sources in diet: tea 4 glasses per day, soda 1/2 fountain drink per day, chocolate 1/2 candy bar per dayAssociated medical and psychiatric conditions:Congestive heart failure: noCoronary artery disease: noMyocardial infarction: noHypertension: yesStroke: noBronchial asthma: noChronic obstructive pulmonary disease: noDepression: yesBipolar disorder: noAnxiety: yesPanic disorder: noPosttraumatic stress disorder: noAttention deficit and hyperactivity disorder: noObsessive Compulsive disorder: noSchizophrenia: noSchizoaffective disorder: noPersonality disorder: noChronic analgesic use: noChronic sedative/hypnotic use: noEPWORTH SLEEPINESS SCALE (ESS)CHANCE OF DOZING SCORE0 = would never doze1 = slight chance of dozing2 = moderate chance of dozing3 = high chance of dozingSITUATION AND CHANCE OF DOZINGSitting and reading - 0Watching television - 1Sitting inactive in a public place (e.g. a theater or meeting) - 0As a passenger in a car for an hour without a break - 0Lying down to rest in the afternoon when circumstances permit - 3Sitting and talking to someone - 0Sitting quietly after lunch without alcohol - 0In a car, while stopped for a few minutes in the traffic - 0TOTAL SCORE 4Subjectively, patient has a slight chance of dozing. Dell Mak MD [address] [place] [address], [address], [facility] [place] [email or web address] 02/23/2024 15:01:17 03/12/2025 text/html Primary care/Ref erring provider: Isabel Hook NP During the [facility] home sleep study on 02/26/22, AHI = 20.During the [facility] titration sleep study on 06/02/22, PLMI = 11.At home since 01/14/23, the patient uses a ResMed AirSense 11 autoset unit with heated humidification. The patient does not need the ramp to start low and go up slowly on the pressure anymore. There is some xerostomia in a.m. There is no hose/mask condensation with water.The patient wears a [employer]Med small AirFit N30i nasal mask without chin strap. There is no claustrophobia, no nostril/nose bridge irritation, no facial rash, no facial numbness, no nosebleeding.The patient feels more refreshed upon waking and daytime alertness is improved. Energy levels are sustained until early afternoon, around 2 pm.At home, the patient sleeps from 9 pm to 6 am am and wakes up with an alarm.Snoring: heavy, since 1980s.Snorting: noChoking: yesCoughing: yesGasping: noGagging: noSighing: yesWitnessed apnea: yesTwitching or jerking of leg(s), arm(s), body, head: yesTeeth grinding: yesTeeth clenching: yesSleeptalking: yesSleepwalking: noSleep crying: noBedwetting: noTongue/lip/gum/cheek biting: noSleeping with open mouth: yesSleep paralysis: noHypnagogic hallucinations: noHypnopompic hallucinations: noVivid dreams: yesDifficulty with sleep onset: yesDifficulty with sleep maintenance: yesSleep interruptions: for no known reasonsPatient wakes up with: fatigue, xerostomia, sore throat, hoarse voice, headaches, jaw painDaytime cataplexy: noMorning hypersomnolence: yesAfternoon hypersomnolence: yesCaffeine sources in diet: tea 4 glasses per day, soda 1/2 fountain drink per day, chocolate 1/2 candy bar per dayAssociated medical and psychiatric conditions:Congestive heart failure: noCoronary artery disease: noMyocardial infarction: noHypertension: yesStroke: noBronchial asthma: noChronic obstructive pulmonary disease: noDepression: yesBipolar disorder: noAnxiety: yesPanic disorder: noPosttraumatic stress disorder: noAttention deficit and hyperactivity disorder: noObsessive Compulsive disorder: noSchizophrenia: noSchizoaffective disorder: noPersonality disorder: noChronic analgesic use: noChronic sedative/hypnotic use: noEPWORTH SLEEPINESS SCALE (ESS)CHANCE OF DOZING SCORE0 = would never doze1 = slight chance of dozing2 = moderate chance of dozing3 = high chance of dozingSITUATION AND CHANCE OF DOZINGSitting and reading - 0Watching television - 0Sitting inactive in a public place (e.g. a theater or meeting) - 0As a passenger in a car for an hour without a break - 0Lying down to rest in the afternoon when circumstances permit - 1Sitting and talking to someone - 0Sitting quietly after lunch without alcohol - 0In a car, while stopped for a few minutes in the traffic - 0TOTAL SCORE 1Subjectively, patient has a slight chance of dozing. Dell Mak MD [address] [place] [address], [address], [place] [facility] 03/12/2025 15:42:51 OBGyn Episode No OBEpisode recorded.
--- OUTSIDE RECORDS SUMMARY | 2025-04-09 11:41 | XMS_ITS | Data Portability ---
Author Organization [facility], [id number] [facility] Address [address] [place] [address] Care Team Providers Care Order Expediter Name Role Phone ANNIA HOOK Primary Care Provider Assessment No assessment recorded. Plan of Treatment Reminders Order Date Submit Date Provider Last Modified By Organization Details Last Modified Time Details Appointments ANNUAL- EST 15 2025 08:30A M ESTEE SHOOK Not available Not available Not available Lab None recorded. Referral None recorded. Procedures None recorded. Surgeries None recorded. Imaging MAMMO, screening , digital, bilateral 2024 025 [email or web address] Not available 04/09/2025 10:44:31 Medication Orders None recorded. Patient TargetsNo targets recorded. Patient InstructionsNo instructions recorded. Reason for Referral None Reported. Problems Name Problem SNOMED Code Status Onset Date Resolution Date Notes Provider Name and Address Organization Details Recorded Time Depressive disorder 99494114 Active 2024 ESTEE SHOOK [email or web address], [place], [address] , [facility] 5 09:28:06 Diabetes mellitus 17981789 Active 2024 ESTEE SHOOK [email or web address], [place], [address] , [facility] 5 09:28:04 Anxiety 71274953 Active 2024 ESTEE SHOOK [email or web address], [place], [address] , 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 Procedures Surgical History Date Name Laterality Status Provider Name and Address Organization Details Recorded Time 01/24/20 Date of Last Pap Smear completed Adriane Leon [facility] 02/19/2025 16:13:28 Cholecystectomy completed Adriane Leon [facility] 02/19/2025 16:20:29 Colonoscopy completed Ed Benavides [facility] 03/14/2025 09:17:52 Laparoscopic cholecystectomy completed Not Available [facility] 03/29/2025 13:50:01 Imaging Results None recorded. Procedure Notes None recorded. Medical Equipment None Reported. Allergies Allergen ID Allergen Name Allergen Category Reaction Reaction Severity Criticality Documentation Date Start Date Code Code System Note Provider Name and Address Organization Details Recorded Time 902938 latex environme nt,medica tion Not available Not available Not available 02/19/2025 52936 91 RxNorm Adriane Leon [facility] 16:03:42 271473 Levaquin medicatio n Not available Not available Not available 02/19/2025 31129 2 RxNorm Adriane Leon [facility] 16:04:14 200787 metformin medicatio n Not available Not available Not available 02/19/2025 6809 RxNorm Adriane Edward null, [place] - [facility] 5 16:04:22 351723 Monistat Simple Therapy medicatio n Not available Not available Not available 02/19/2025 70925 72 RxNorm Adriane Edward null, [place] - [facility] 5 16:04:28 793385 morphine medicatio n Not available Not available Not available 02/19/2025 7052 RxNorm Adriane Edward null, [place] - [facility] 5 16:04:35 555445 Product containin g penicilli n (product) medicatio n Not available Not available Not available 02/19/2025 77740 8001 SNOMED Adriane Edward [facility], [place] - [facility] 5 16:04:43 887969 miconazol e nitrate medicatio n Not available Not available Not available 03/29/2025 16382 RxNorm Not Available [facility] 5 12:27:53 885177 diphenhyd ramine hydrochlo ride medicatio n other Not available Not available 03/29/2025 1362 RxNorm NOTE: Metfo rmin - Phree roman 01/07 Not Available [facility] 5 12:27:54 Medications Name Sig Start Date Stop Date Status Note LastModified by Organization Details LastModified Time folic acid 20 mg capsule Take by oral route. 03/14 completed Not Available Not Available Not Available lisinopril 2.5 mg tablet Take 1 tablet every day by oral route. active Not Available Not Available No t Available atorvastati n active Not Available Not Available Not Available metoprolol succinate active Not Available Not Available No t Available Lexapro active Not Available Not Avail able Not Available duloxetine active Not Available Not Av ailable Not Available Vitamin D3 50 mcg (2,000 unit) capsule Take 1 capsule every day by oral route. 03/14 completed Not Available Not Available Not Available Alissa Allergy 60 mg tablet Take 1 tablet twice a day by oral route. active Not Available Not Available No t Available Vraylar active Not Available Not Avail able Not Available aspirin 81 mg capsule Take 1 capsule every day by oral route. active Not Available Not Available No t Available Mounjaro 15 mg/0.5 mL subcutaneou s pen injector Inject by subcutane ous route. active Not Available Not Available No t Available Auvelity 45 mg-105 mg tablet, extended release Take 1 tablet twice a day by oral route. active Not Available Not Available No t Available Vitals Date Recorded Body height Body mass index (BMI) Body weight Systolic blood pressure Diastolic blood pressure Provider Name and Address Organization Details Last Updated DateTime 03/14/2025 162.56 cm 55.8 kg/m2 750834.5 2 g 126 mm[Hg] 74 mm[Hg] Ed Benavides [facility] 09:17:25 Social History Question Answer Notes LastModified by [email or web address] ion Details LastModified Time Tobacco Smoking Status Never [facility] 02/19/2025 16:20:21 Do You Have An Advance Directive? No Information not available 03/14/2025 If You Are , What Was Your Level Of Alcohol Consumption Prior To ? None Information not available 03/14/2025 What Is Your Level Of Caffeine Consumption? Heavy Information not available 03/14/2025 What Type Of Diet Are You Following? REGULAR Information not available 03/14/2025 What Is Your Relationship Status? Single [email or web address] Information not available 02/19/2025 Sex: Unknown Functional Status Question Answer Note LastModified by Organizat ion Details LastModified Time Do you use any illicit or recreational drugs? No [email or web address] Information not available 02/19/2025 What is your level of alcohol consumption? None [email or web address] Information not available 02/19/2025 Are you currently employed? 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 None Information not available 03/29/2025 Mental Status None recorded. Family History Relationship Description Onset Age of this Age Resolved Age Notes LastModified by Organization Details LastModified Time Paternal Grandmother Alzheimer's disease [email or web address] Not available 2024 09:17:29 Paternal Grandmother Diabetes mellitus [email or web address] Not available 2024 09:17:29 Paternal Grandmother Heart disease [email or web address] Not available 2024 16:18:25 Paternal Grandmother Hypertensive disorder [email or web address] Not available 2024 16:18:56 Paternal Grandmother Osteoporosis [email or web address] Not available 03/14/2025 09:17:29 Paternal Grandmother Anxiety disorder [email or web address] Not available 2024 09:17:29 Paternal Grandmother Depressive disorder [email or web address] Not available 2024 09:17:29 Mother Alzheimer's disease [email or web address] Not available 2024 09:17:29 Mother Deep venous thrombosis [email or web address] Not available 03/14 09:17:29 Mother Depressive disorder [email or web address] Not available 2024 16:17:13 Mother Heart disease [email or web address] Not available 2024 16:18:25 Mother Hypertensive disorder [email or web address] Not available 2024 16:18:56 Mother Myocardial infarction [email or web address] Not available 02/19 16:19:12 Brother Deep venous thrombosis [email or web address] Not available 03/14 09:17:29 Brother Depressive disorder [email or web address] Not available 2024 09:17:29 Brother Diabetes mellitus [email or web address] Not available 2024 16:17:42 Brother Heart disease [email or web address] Not available 2024 16:18:25 Brother Myocardial infarction [email or web address] Not available 03/14 09:17:29 Maternal Grandmother Deep venous thrombosis [email or web address] Not available 03/14 09:17:29 Maternal Grandmother Diabetes mellitus [email or web address] Not available 2024 16:17:42 Maternal Grandmother Heart disease [email or web address] Not available 2024 16:18:25 Maternal Grandmother Hypertensive disorder Not available 2024 16:18:56 Father Malignant neoplasm of brain [email or web address] Not available 2024 09:17:29 Paternal Uncle Malignant neoplasm of brain [email or web address] Not available 2024 09:17:29 Sister Depressive disorder [email or web address] Not available 2024 09:17:29 Sister Disorder of thyroid gland [email or web address] Not available 2024 09:17:29 Sister Anxiety disorder [email or web address] Not available 2024 09:17:29 Sister Diabetes mellitus [email or web address] Not available 2024 09:17:29 Maternal Grandfather Myocardial infarction [email or web address] Not available 03/14 09:17:29 Paternal Grandfather Myocardial infarction [email or web address] Not available 03/14 09:17:29 Paternal Grandfather Heart disease [email or web address] Not available 2024 09:17:29 Unspecified Relation Family history taken Family Medica l Histor y Review ed Not available 03/29/2025 13:39:42 Brother Myocardial infarction Myocar dial Infarc tion Not available 03/29/2025 13:39:42 Brother Type 2 diabetes mellitus without complication DM Type II Proble m Code: 250.00 ; Proble m Code Type: ICD-9; Not available 03/29/2025 13:39:43 Brother Depressive disorder Depres bridget Not available 03/29/2025 13:39:43 Brother Heart disease Heart Diseas e Not available 03/29/2025 13:39:44 Brother Blood coagulation disorder 3 Blood Clots Not available 03/29/2025 13:39:45 Maternal Grandmother Type 2 diabetes mellitus without complication DM Type II Proble m Code: 250.00 ; Proble m Code Type: ICD-9; Not available 03/29/2025 13:39:43 Maternal Grandmother Blood coagulation disorder Blood Clots Not available 03/29/2025 13:39:45 Paternal Grandmother Type 2 diabetes mellitus without complication DM Type II Proble m Code: 250.00 ; Proble m Code Type: ICD-9; Not available 03/29/2025 13:39:43 Sister Depressive disorder Alex gill Not available 03/29/2025 13:39:43 Father Malignant neoplastic disease Cancer dad- brain P uncle- brain Not available 03/29/2025 13:39:44 Mother Blood coagulation disorder Blood Clots Not available 03/29/2025 13:39:45 Medical History Condition Response Pulmonary- Sleep Apnea Y Psych- Anxiety Disorder Y Psych- Depression Y Cancer- Genetic screening Cardiology- High Blood Pressure Y Endocrinology- Diabetes Y Reviewed with no changes Y Gynecological History Statement/Question Response History of PCOS N Date of Last Mammogram History of Fibroids N Date of LMP History of Infertility N History of Vulvar Dysplasia N History of Cervical Dysplasia N Duration of Flow (days) 0 Age at Menarche 11 Current Control Method N/A History of HPV N History of Recurrent Ovarian Cysts N History of Endometriosis N Sexually Active? N History of Dysmenorrhea N Menses Monthly N Date of Last Pap Smear 01/24/2023 History of Sexually Transmitted Infectio n N Obstetrics History GPAL:G 0 P 0 0 0 0 Type Value Multiple Births 0 Full Term 0 Induced 0 Spontaneous 0 Premature 0 Living 0 Ectopics 0 Total 0 Immunizations Vaccine Type Date Status Note Provider Nam e and Address Organization Details Recorded Time SARS-COV-2 (COVID-19) vaccine, UNSPECIFIED 11/29/2020 bill Leon [facility] 02/19/2025 16:09:16 influenza, unspecified formulation 11/29/2021 bill Leon [facility] 02/19/2025 16:09:32 Past Encounters Encounter ID Performer Location Encounter Start Date Encounter Closed Date Diagnosis/Indication Diagnosis SNOMED-CT Code Diagnosis ICD10 Code Diagnosis Note [id number] [address], MD [id number] [place] [address] 03/14/2025 09:06:21 03/14/2025 09:58:45 Screening mammography 06371988 Z12.31 -call to schedule mammogram Gynecologi c examination 24455856 Z01.419 -f/u [address] SCAN SPECIAL PROCEDURES TECHNOLOGIST exam Depression screening 171 660151 Z13.31 03/14/25-sc ore 15-pt someone for mental health and feels like medication s are working well Health Concerns Section Related Observation LastModified by Organization Detai ls LastModified Time None Recorded Concern Status LastModified by Organization Details LastModified Time None Recorded Advance Directives Directive N: Payers Insurance Date Sequence Insurance Name Policy Number Policy Graves Covered Member ID Graves Member ID Guarantor Name 03/26/2025 1 MEDICARE-ND (MEDICARE) Nguyen Green [id number] Nguyen Green Notes Date Note Type Note Provider Name and Address Organization Details Recorded Time 03/14/2025 text/html [facility] Annual Well-Women Visit Age 40-64Reported bypatient.Current Medical History:reviewed and documented Relevant Family History:no family history of breast cancer Last Pap smear:up-to-date Mammography:due Colorectal screening:up-to-da te Diabetes screening:due; seeing PCP today Lipid screening:due Thyroid screeningdue Sexually Active:No: by choiceNotes: 5doing well, having some dizziness and diarrhea but sees PCP today after our appt and will discuss it with her. -ezra [facility]ON [facility] [address], [place], [address], [facility] 03/14/2025 09:52:08 OBGyn Episode No OBEpisode recorded.
--- OUTSIDE RECORDS SUMMARY | 2025-04-09 11:41 | XMS_ITS | Clinical Summary ---
Author Organization [facility] Address [address] [address] Care Team Providers Care Kitchen Steward/Stewardess Name Role Phone Majo Stovall MD Primary Care Provider [phone] Source Comments [facility] [place],non-owned Affiliates and Associated Physician Practices is amultiple site organization consisting of ambulatory clinics and hospital sitesin [place], [place], [place] and [place]. This disclosure is being madepursuant to the Care Everywhere program and may not contain all information available regarding this patient. Last updated 18.[facility] [place] Allergies Active Allergy Reactions Criticality Noted Date [...] checking into different surgeries and ?coverage by [facility] Discussed bypass 12/13--wants to try again to [...] on file Legal Sex Female 2:39 PM MEDICAL RECORD CONSULTANT Gender Identity Female 06/20/2019 8:35 AM CDT [...] COMPREHENSIVE METABOLIC PANEL Routine 10/28/2018 1:00 PM MEDICAL RECORD CONSULTANT Uncontrolled type 2 diabetes mellitus with hyperglycemia [...] within a diagnostic category. Test Performed at: [facility] [address] [place] [address] KALI ZAMORANO DO,MPH Urine URINE SPECIMEN OBTAINED BY CLEAN CATCH PROCEDURE / Unknown 03/01/2019 2:03 PM CDT 03/02/2019 5:38 AM CDT us Majo Stovall MD LAB - URINE CHEMISTRY ORDERAB LES Final Result [facility] [id number] [place] [address] * (ABNORMAL) HEMOGLOBIN A1C (03/01/2019 2:03 PM [...] of diabetes for children. Test Performed at: [facility] [address] [place] [address] KALI ZAMORANO DO,MPH Blood BLOOD SPECIMEN / Unknown 03/01/2019 2:03 PM CDT 03/02/2019 5:38 AM CDT Majo Stovall MD LAB - CHEMISTRY ORDERABLES nal Result [facility] [id number] [place] [address] * (ABNORMAL) COMPREHENSIVE METABOLIC PANEL (10/28/2018 1:00 PM MEDICAL RECORD CONSULTANT) Glucose 251(H) 65 - 99 mg/dL [facility] [...] 29 U/L [facility] Comment: Test Performed at: [facility] [employer] [facility] [address] [place] [address] KALI ZAMORANO DO,MPH Blood BLOOD SPECIMEN / Unknown 10/28/2018 1:00 PM MEDICAL RECORD CONSULTANT 10/29/2018 6:29 AM MEDICAL RECORD CONSULTANT us Majo Stovall MD LAB - CHEMISTRY ORDERABLES Fi nal Result Performing Organization Address City/State/[facility] Co de Phone Number [facility] [address] [place] [address] * MAMMO BILAT SCREENING (03/03/2013 7:42 AM [...] Recently Relevant to Health Maintenance Insurance [employer] [address] [employer] Care Teams Kitchen Steward/Stewardess Relationship Specialty Start Date End Date Majo Stovall MD [address] [address] PCP - General 05/27/18
--- OUTSIDE RECORDS SUMMARY | 2025-04-09 11:41 | XMS_ITS | Referral Summary ---
Author Organization [facility] [address] Address [address] [place] [address] Care Team Providers Care Filter Washer Name Role Phone Melisa Calderon NP Primary Care Provider [phone] Allergies Active Allergy Reactions Criticality Noted Date [...] 11/01/2020 Assessment & Plan (11/01/2020 11:20 AM ORGAN TEACHER): Referral to podiatry. Hip pain, left 11/01/2020 Assessment & Plan (11/01/2020 11:06 AM ORGAN TEACHER): Take NSAIDs as needed. May use ice & heat to affected area. Maintain adequate rest with stretching/exercising. The patient was advised to call the office if symptoms worsen or do not improve. The patient verbalized an understanding of all instructions & plan. Painful veins 11/01/2020 Assessment & Plan (11/01/2020 11:21 AM ORGAN TEACHER): Imagining ordered. Non compliance w medication regimen 06/04/2020 Assessment & Plan (06/04/2020 2:48 PM CDT): Patient ran out of medications over three weeks ago for diabetes, just made appointment for today, blood sugars consistently running over 300. BMI 50.0-59.9, adult 06/04/2020 Assessment & Plan (11/01/2020 9:54 AM ORGAN TEACHER): BMI Follow-up includes: education provided. Assessment & Plan (06/04/2020 2:53 PM CDT): BMI Follow-up includes: education provided. Diabetes mellitus 09/22/2019 Assessment & Plan (10/31/2020 8:30 AM ORGAN TEACHER): Cont to take medication. Cont to monitor [...] work. Assessment & Plan (01/19/2020 10:40 AM ORGAN TEACHER): Hasn't been on Trulicity. Couldn't afford it. Has money now. Did give sample. HgA1C 11.9 in office. Informed her she needs to be on insulin. She doesn't want insulin. She will take Trulicity & get the blood sugars under control. Explained to her if not improved will need to go on insulin & may need to see peoplesoft hr developer. Cont to take medication. Cont to monitor [...] hyperlipidemia Assessment & Plan (10/31/2020 8:31 AM ORGAN TEACHER): Advised to maintain a low-fat, low-cholesterol diet. [...] 76 Assessment & Plan (01/18/2020 9:56 AM ORGAN TEACHER): Advised to maintain a low-fat, low-cholesterol diet. [...] 09/22/2019 Assessment & Plan (11/01/2020 11:25 AM ORGAN TEACHER): BP low. Hold Norvasc at this time & cont Metoprolol. Bring BP cuff in for apt. Follow up 1 month. Maintain a low-sodium diet (less than 2 grams per day). Maintain a regular cardiovascular exercise program. Assessment & Plan (06/04/2020 2:50 PM CDT): Stable, Continue current tx plan Assessment & Plan (01/18/2020 9:56 AM ORGAN TEACHER): Maintain a low-sodium diet (less than 2 [...] syndrome Assessment & Plan (10/31/2020 8:32 AM ORGAN TEACHER): Cont medication. Assessment & Plan (06/04/2020 2:50 PM CDT): BMI Follow-up includes: education provided. Assessment & Plan (01/18/2020 9:56 AM ORGAN TEACHER): Cont medication. Assessment & Plan (09/22/2019 9:28 AM CDT): Cont medication. Mild episode of recurrent major depressive disor [place] 09/22/2019 Assessment & Plan (11/01/2020 11:19 AM ORGAN TEACHER): D/w pt eating healthy, exercising, relaxation, counsling [...] Score=0 Assessment & Plan (01/18/2020 9:57 AM ORGAN TEACHER): Stable. Cont medication. Assessment & Plan (09/22/2019 9:29 AM CDT): Stable. Cont medication. Anxiety 09/22/2019 Assessment & Plan (11/01/2020 11:19 AM ORGAN TEACHER): D/w pt eating healthy, exercising, relaxation, counsling [...] Score=0 Assessment & Plan (01/18/2020 9:57 AM ORGAN TEACHER): Stable. Cont medication. Assessment & Plan (09/22/2019 9:28 AM CDT): Stable. Cont medication. Seasonal allergies 09/22/2019 Assessment & Plan (10/31/2020 8:33 AM ORGAN TEACHER): Stable. Cont otc medication as needed. Assessment & Plan (06/04/2020 2:52 PM CDT): Take Miguelito one tablet daily. Use Flonase one spray to each nostril once daily. Do not open windows on house or car to avoid further exposure to allergens, Take other medications as directed. Follow up in office as needed. Assessment & Plan (01/18/2020 9:58 AM ORGAN TEACHER): Stable. Cont otc medication as needed. Assessment & Plan (09/22/2019 9:29 AM CDT): Stable. Cont medication. Insomnia 09/22/2019 Assessment & Plan (11/01/2020 10:23 AM ORGAN TEACHER): Stable. Cont medication as needed. Takes Trazodone as needed. Assessment & Plan (06/04/2020 2:51 PM CDT): Continue current medication, no caffiene after 6pm at night, no stimulant medications such as dietary supplements or diet pills, When ready for bed turn off all TV's, radio, music to allow time to reduce the stimulant. Assessment & Plan (01/18/2020 9:57 AM ORGAN TEACHER): Stable. Cont medication. Assessment & Plan (09/22/2019 9:29 AM CDT): Stable. Cont medication. Morbid obesity with BMI of 50.0-59.9, adult 08/30 Assessment & Plan (06/04/2020 2:35 PM CDT): BMI Follow-up includes: education provided. Resolved Problems Problem Noted Date Diagnosed Date Resolved Date Annual physical exam 10/20/2020 021 Assessment & Plan (10/31/2020 8:29 AM ORGAN TEACHER): Maintain healthy lifestyle with healthy diet & exercise. Yeast infection 09/22/2019 10/20/2020 Assessment & Plan (06/04/2020 2:51 PM CDT): Will order Diflucan take as directed Assessment & Plan (01/19/2020 10:24 AM ORGAN TEACHER): Not wanting to have an exam & [...] on file Legal Sex Female 7:51 PM ORGAN TEACHER Gender Identity Female 11/29/2019 8:23 PM ORGAN TEACHER Sexual Orientation Lesbian 11/29/2019 8: 23 PM ORGAN TEACHER Last Filed Vital Signs Vital Sign Reading Time Taken Comments Blood Pressure 98/72 11/01/2020 10:14 AM ORGAN TEACHER Pulse 92 11/01/2020 10:14 AM ORGAN TEACHER Temperature 36.2 C (97.1 F) 11/01/2020 10:14 AM ORGAN TEACHER Respiratory Rate - - Oxygen Saturation - - Inhaled Oxygen Concentration - - Weight 154.7 kg (341 lb) 11/01/2020 10:14 AM ORGAN TEACHER Height 162.6 cm (5' 4 ) 11/01/2020 10:14 AM ORGAN TEACHER Body Mass Index 58.53 11/01/2020 10:14 AM ORGAN TEACHER Plan of Treatment Not on file Care Teams Filter Washer Relationship Specialty Start Date End Date Melisa Calderon NP [address] [place] [address] PCP - General Family Medicine 09/22/19
--- OUTSIDE RECORDS SUMMARY | 2025-04-09 11:41 | XMS_ITS | CONTINUITY OF CARE DOCUMENT ---
Author Name charity n[facility] Address Unknown Organization [facility] Address [address] [facility] [address] [place] [address] Phone [phone] Care Team Providers Care Local Bulk Driver Name Role Phone Danilo BLAKE, Iona Rose Unavailable [phone] Alex MIRZAP-BC, Isabel Downey Unavailable [phone] Alex MIRZAP-BC, Isabel Downey Unavailable PROBLEMS Condition [...] In-person encounter Office Visit Iona Carrasco MD [facility] Cardiology examination - In-person encounter Office Visit Iona Carrasco MD [facility] - In-person encounter Office Visit Iona Carrasco MD [facility] - In-person encounter Office Visit Iona Carrasco MD [facility] Sleep apnea - In-person encounter Office Visit Iona Carrasco MD [facility] - In-person encounter Office Visit Iona Carrasco MD [facility] HypertensionDiabetes, Type 2HyperlipidemiaSinus tachycardiaAnxiety situationalCardiovascular Condition [...] blood pressure, diastolic 85 mm[Hg] Ca therine Burton blood pressure, systolic 157 mm[Hg] Cat herine Horacio oxygen saturation, oximetry 94 % Maria Luisa Horacio respiratory rate E&M 14 /min Catheri ne Burton pulse rate 116 /min Maria Luisa Horacio weight E&M 317 [lb_av] Maria Luisa Burton height E&M 94 [in_i] Maria Luisa Burton blood pressure, cuff size regular Ca therine Burton ALLERGIES Allergy Name Onset Date Reaction Criticality [...] TABLET BY MOUTH EVERY DAY Maria Luisa Burton duloxetine 30 mg capsule,delayed release(DR/EC) active TAKE 1 CAPSULE BY MOUTH EVERY DAY Maria Luisa Horacio escitalopram oxalate 20 mg tablet active TAKE 1 TABLET BY MOUTH EVERY DAY Maria Luisa Burton glipizide 10 mg tablet active TAKE 2 TABLETS BY MOUTH TWICE A DAY Maria Luisa Horacio montelukast 10 mg tablet active TAKE 1 TABLET BY MOUTH EVERY DAY Maria Luisa Horacio lisinopril 2.5 mg tablet active TAKE 1 TABLET BY MOUTH EVERY DAY Maria Luisa Horacio metoprolol succinate 100 mg tablet extended release 24 hr completed Take 1 1/2 tablet by mouth once a day - Brianna Blackwell atorvastatin 10 mg tablet active TAKE 1 TABLET BY MOUTH EVERY DAY Maria Luisa Horacio aspirin 81 mg capsule active Maria Luisa Burton vitamin D3-folic acid 2,500 unit- 1 mg tablet active Maria Luisa Horacio Vitamin C unspecified unspecified active Maria Luisa Burton SOCIAL HISTORY Date Observation Value Provider smoking [...] de la cruz ID [place] [employer] Medicare [id number] ADVANCE DIRECTIVES Name Date DISCUSSED - NO DECISION MADE TREATMENT PLAN Date Name Performer [id number],C,C heck A1c H er updated medication list for this problem includes: Farxiga 10 Mg Tablet (Dapagliflozin) ..... Take 1 tablet by mouth every day Glipizide 10 Mg Tablet (Glipizide) ..... Take 2 tablets by mouth twice a day Lisinopril 2.5 Mg Tablet (Lisinopril) ..... Take 1 tablet by mouth every day Iona Carrasco MD [id number],C, H er updated medication list for this problem includes: Metoprolol Succinate 100 Mg Tablet Extended Release 24 Hr (Metoprolol succinate) ..... Take 1 1/2 tablet by mouth once a day need to take 150mg daily Lisinopril 2.5 Mg Tablet (Lisinopril) ..... Take 1 tablet by mouth every day BP today: 122/80 P rior BP: 140/90 (10/09/2022) Iona Carrasco MD [id number],S,F ebruary 2022 B radha with beta karan. Continue with metoprolol XL 150mg daily. Iona Carrasco MD [id number],C, H er updated medication list for this problem includes: Atorvastatin 10 Mg Tablet (Atorvastatin) ..... Take 1 tablet by mouth every day Iona Carrasco MD [id number],C, h ad lisa w/u done with pcp and will get cpap on 10/14January 01, 2023 T he patient is using CPAP on a regular basis. The patient has been benefiting from therapy and should continue use. Iona Carrasco MD [id number],C, o n medrx Iona Carrasco MD [id number],S, H er updated medication list for this problem includes: Farxiga 10 Mg Tablet (Dapagliflozin) ..... Take 1 tablet by mouth every day Glipizide 10 Mg Tablet (Glipizide) ..... Take 2 tablets by mouth twice a day Lisinopril 2.5 Mg Tablet (Lisinopril) ..... Take 1 tablet by mouth every day Iona Carrasco MD [id number],C, B P today: 140/90 P rior BP: 142/82 (07/03/2022) Her updated medication list for this problem includes: Metoprolol Succinate 100 Mg Tablet Extended Release 24 Hr (Metoprolol succinate) ..... Take 1 tablet by mouth once a day Lisinopril 2.5 Mg Tablet (Lisinopril) ..... Take 1 tablet by mouth every day Iona Carrasco MD [id number],C, I ncreased Toprol XL to 50mg TID N 2021 s he tolerated and will cahgne to toprolxl 150mg Iona Carrasco MD [id number],C,h ad lisa w/u done with pcp and will get cpap on 10/14 Iona Carrasco MD [id number],C, H er updated medication list for this problem includes: Metoprolol Succinate 100 Mg Tablet Extended Release 24 Hr (Metoprolol succinate) ..... Take 1/2 tablet by mouth every eight hours take 1 tablet by mouth every day Lisinopril 2.5 Mg Tablet (Lisinopril) ..... Take 1 tablet by mouth every day BP today: 142/82 P rior BP: 157/85 (02/27/2022) Iona Carrasco MD [id number],C, H er updated medication list for this problem includes: Farxiga 10 Mg Tablet (Dapagliflozin) ..... Take 1 tablet by mouth every day Glipizide 10 Mg Tablet (Glipizide) ..... Take 2 tablets by mouth twice a day Lisinopril 2.5 Mg Tablet (Lisinopril) ..... Take 1 tablet by mouth every day Iona Carrasco MD [id number],C, H er updated medication list for this problem includes: Atorvastatin 10 Mg Tablet (Atorvastatin) ..... Take 1 tablet by mouth every day Iona Carrasco MD [id number],C, c heck echo and tel emoniotr Normal LV fucntion brief SVT Iona Carrasco MD [id number],S,Increased Top rol XL to 50mg TID Iona Carrasco MD [id number],C,check echo an d tel emoniotr Iona Carrasco MD [id number],C, H er updated medication list for this problem includes: Farxiga 10 Mg Tablet (Dapagliflozin) ..... Take 1 tablet by mouth every day Glipizide 10 Mg Tablet (Glipizide) ..... Take 2 tablets by mouth twice a day Lisinopril 2.5 Mg Tablet (Lisinopril) ..... Take 1 tablet by mouth every day Iona Carrasco MD [id number],S,on medrx Alana Carrasco MD [id number],S,T SH was normal at 1.99 on 03/26/21 w ill get tele monitor a void caffeine s he has been drinking iced tea unsweetehned advicesd against intake of caffeine for now w ill increase toprol xl to 50mg bid a void montekulast use flonase for allergies Iona Carrasco MD [id number],S,advacnce topr olxl to 50mg bid Iona Carrasco [...] medrx Iona Carrasco MD Cardiology:A1c 6.5[facility] H er updated medication list [...]
--- OUTSIDE RECORDS SUMMARY | 2025-04-09 11:41 | XMS_ITS | Clinical Summary ---
Author Organization [facility] [address] Address [address] [place] [address] Care Team Providers Care Bulk Pallet Builder Name Role Phone Melisa Calderon NP Primary Care Provider [phone] Allergies Active Allergy Reactions Criticality Noted Date [...] 11/01/2020 Assessment & Plan (11/01/2020 11:20 AM FINANCIAL [employer] OFFICER): Referral to podiatry. Hip pain, left 11/01/2020 Assessment & Plan (11/01/2020 11:06 AM FINANCIAL AIDS OFFICER): Take NSAIDs as needed. May use ice & heat to affected area. Maintain adequate rest with stretching/exercising. The patient was advised to call the office if symptoms worsen or do not improve. The patient verbalized an understanding of all instructions & plan. Painful veins 11/01/2020 Assessment & Plan (11/01/2020 11:21 AM FINANCIAL AIDS OFFICER): Imagining ordered. Non compliance w medication regimen 06/04/2020 Assessment & Plan (06/04/2020 2:48 PM CDT): Patient ran out of medications over three weeks ago for diabetes, just made appointment for today, blood sugars consistently running over 300. BMI 50.0-59.9, adult 06/04/2020 Assessment & Plan (11/01/2020 9:54 AM FINANCIAL AIDS OFFICER): BMI Follow-up includes: education provided. Assessment & Plan (06/04/2020 2:53 PM CDT): BMI Follow-up includes: education provided. Diabetes mellitus 09/22/2019 Assessment & Plan (10/31/2020 8:30 AM FINANCIAL AIDS OFFICER): Cont to take medication. Cont to monitor [...] work. Assessment & Plan (01/19/2020 10:40 AM FINANCIAL AIDS OFFICER): Hasn't been on Trulicity. Couldn't afford it. Has money now. Did give sample. HgA1C 11.9 in office. Informed her she needs to be on insulin. She doesn't want insulin. She will take Trulicity & get the blood sugars under control. Explained to her if not improved will need to go on insulin & may need to see peer financial counselor. Cont to take medication. Cont to monitor [...] hyperlipidemia Assessment & Plan (10/31/2020 8:31 AM FINANCIAL AIDS OFFICER): Advised to maintain a low-fat, low-cholesterol diet. [...] 75 Assessment & Plan (01/18/2020 9:56 AM FINANCIAL AIDS OFFICER): Advised to maintain a low-fat, low-cholesterol diet. [...] 09/22/2019 Assessment & Plan (11/01/2020 11:25 AM FINANCIAL AIDS OFFICER): BP low. Hold Norvasc at this time & cont Metoprolol. Bring BP cuff in for apt. Follow up 1 month. Maintain a low-sodium diet (less than 2 grams per day). Maintain a regular cardiovascular exercise program. Assessment & Plan (06/04/2020 2:50 PM CDT): Stable, Continue current tx plan Assessment & Plan (01/18/2020 9:56 AM FINANCIAL AIDS OFFICER): Maintain a low-sodium diet (less than 2 [...] syndrome Assessment & Plan (10/31/2020 8:32 AM FINANCIAL AIDS OFFICER): Cont medication. Assessment & Plan (06/04/2020 2:50 PM CDT): BMI Follow-up includes: education provided. Assessment & Plan (01/18/2020 9:56 AM FINANCIAL AIDS OFFICER): Cont medication. Assessment & Plan (09/22/2019 9:28 AM CDT): Cont medication. Mild episode of recurrent major depressive disor [place] 09/22/2019 Assessment & Plan (11/01/2020 11:19 AM FINANCIAL AIDS OFFICER): D/w pt eating healthy, exercising, relaxation, counsling [...] Score=0 Assessment & Plan (01/18/2020 9:57 AM FINANCIAL AIDS OFFICER): Stable. Cont medication. Assessment & Plan (09/22/2019 9:29 AM CDT): Stable. Cont medication. Anxiety 09/22/2019 Assessment & Plan (11/01/2020 11:19 AM FINANCIAL AIDS OFFICER): D/w pt eating healthy, exercising, relaxation, counsling [...] Score=0 Assessment & Plan (01/18/2020 9:57 AM FINANCIAL AIDS OFFICER): Stable. Cont medication. Assessment & Plan (09/22/2019 9:28 AM CDT): Stable. Cont medication. Seasonal allergies 09/22/2019 Assessment & Plan (10/31/2020 8:33 AM FINANCIAL AIDS OFFICER): Stable. Cont otc medication as needed. Assessment & Plan (06/04/2020 2:52 PM CDT): Take Miguelito one tablet daily. Use Flonase one spray to each nostril once daily. Do not open windows on house or car to avoid further exposure to allergens, Take other medications as directed. Follow up in office as needed. Assessment & Plan (01/18/2020 9:58 AM FINANCIAL AIDS OFFICER): Stable. Cont otc medication as needed. Assessment & Plan (09/22/2019 9:29 AM CDT): Stable. Cont medication. Insomnia 09/22/2019 Assessment & Plan (11/01/2020 10:23 AM FINANCIAL AIDS OFFICER): Stable. Cont medication as needed. Takes Trazodone as needed. Assessment & Plan (06/04/2020 2:51 PM CDT): Continue current medication, no caffiene after 6pm at night, no stimulant medications such as dietary supplements or diet pills, When ready for bed turn off all TV's, radio, music to allow time to reduce the stimulant. Assessment & Plan (01/18/2020 9:57 AM FINANCIAL AIDS OFFICER): Stable. Cont medication. Assessment & Plan (09/22/2019 9:29 AM CDT): Stable. Cont medication. Morbid obesity with BMI of 50.0-59.9, adult 08/30 Assessment & Plan (06/04/2020 2:35 PM CDT): BMI Follow-up includes: education provided. Resolved Problems Problem Noted Date Diagnosed Date Resolved Date Annual physical exam 10/20/2020 021 Assessment & Plan (10/31/2020 8:29 AM FINANCIAL AIDS OFFICER): Maintain healthy lifestyle with healthy diet & exercise. Yeast infection 09/22/2019 10/20/2020 Assessment & Plan (06/04/2020 2:51 PM CDT): Will order Diflucan take as directed Assessment & Plan (01/19/2020 10:24 AM FINANCIAL AIDS OFFICER): Not wanting to have an exam & [...] on file Legal Sex Female 7:51 PM FINANCIAL AIDS OFFICER Gender Identity Female 11/29/2019 8:23 PM FINANCIAL AIDS OFFICER Sexual Orientation Lesbian 11/29/2019 8: 23 PM FINANCIAL AIDS OFFICER Obstetrics History Last Filed Vital Signs Vital Sign Reading Time Taken Comments Blood Pressure 98/72 11/01/2020 10:14 AM FINANCIAL AIDS OFFICER Pulse 92 11/01/2020 10:14 AM FINANCIAL AIDS OFFICER Temperature 36.2 C (97.1 F) 11/01/2020 10:14 AM FINANCIAL AIDS OFFICER Respiratory Rate - - Oxygen Saturation - - Inhaled Oxygen Concentration - - Weight 154.7 kg (341 lb) 11/01/2020 10:14 AM FINANCIAL AIDS OFFICER Height 162.6 cm (5' 4 ) 11/01/2020 10:14 AM FINANCIAL AIDS OFFICER Body Mass Index 58.53 11/01/2020 10:14 AM FINANCIAL AIDS OFFICER Plan of Treatment Not on file Care Teams Bulk Pallet Builder Relationship Specialty Start Date End Date Melisa Calderon NP [address] [place] [address] PCP - General Family Medicine 09/22/19
== END 2025-04-09 11:33 | disposition home or self-care (01) ==
PROVIDERS: PCP Nurse Practitioner Family; Visit Provider Nurse Practitioner
DX: K52.9 Noninfective gastroenteritis and colitis, unspecified (principal); R19.4 Change in bowel habit
CPT/HCPCS: 82653; 83993; 87045; 87269; 87427; 87449; 87493